=== PATIENT | male | born 1955 | race Caucasian/White ===

== ENCOUNTER → 2024-07-06 | Outpatient (CLI) | payer MEDICARE, MEDICAID, SELFPAY ==
[2024-07-06 16:44] LABS: Glucose Estimated Average 197 mg/dL (80-131); Hemoglobin A1C 8.5 % Hgb (4.8-6.0)
== END | disposition home or self-care (01) ==
PROVIDERS: PCP Family Medicine; Referring Provider Family Medicine; Visit Provider Family Medicine
DX: E11.65 Type 2 diabetes mellitus with hyperglycemia (principal)
CPT/HCPCS: 36415; 83036

== ENCOUNTER → 2024-08-14 | Outpatient (CLI) | payer MEDICARE, MEDICAID, SELFPAY ==
[2024-08-14 10:17] LABS: Basophils # (Auto) 0.1 Thou/mm3 (0.0-0.2); Basophils % (Auto) 1 % (0-2.5); Eosinophils # (Auto) 0.3 Thou/mm3 (0.0-0.5); Eosinophils % (Auto) 3 % (0-10); Hematocrit 44.6 % (41.0-53.0); Hemoglobin 14.7 g/dL (13.5-16.0); Immature Granulocytes % (Auto) 0 % (0-0); Immature Granulocytes Auto 0.03 Thou/mm3 (0.00-0.00); Lymphocytes # (Auto) 2.5 Thou/mm3 (1.0-4.8); Lymphocytes % (Auto) 22 % (10-50); Mean Corpuscular Hemoglobin 30.7 pg (25.0-35.0); Mean Corpuscular Volume 93 fL (80-100); Monocytes # (Auto) 0.8 Thou/mm3 (0.0-0.8); Monocytes % (Auto) 7 % (0-12); Neutrophils # (Auto) 7.4 Thou/mm3 (1.8-7.7); Neutrophils % (Auto) 67 % (37-80); Nucleated Red Blood Cell % 0 /100 WBC (0); Platelet Count 221 Thou/mm3 (140-440); RDW Standard Deviation 44.5 fL (35.1-43.9); Red Blood Count 4.79 Miln/mm3 (4.50-5.90); White Blood Count 11.1 Thou/mm3 (3.8-10.6)
[2024-08-14 10:23] LABS: Glucose Estimated Average 220 mg/dL (80-131); Hemoglobin A1C 9.3 % Hgb (4.8-6.0)
[2024-08-14 10:28] LABS: Alanine Aminotransferase 33 U/L (10-49); Albumin, Serum 4.2 gm/dL (3.4-4.8); Albumin/Globulin Ratio 1.9 (1.2-2.2); Alkaline Phosphatase 148 U/L (46-116); Anion Gap 10 (7-16); Aspartate Amino Transferase 25 U/L (0-34); BUN/Creatinine Ratio 18 Ratio (12-20); Bilirubin,Total 0.8 mg/dL (0.3-1.2); Blood Urea Nitrogen 20 mg/dL (9-23); Calcium 9.2 mg/dL (8.3-10.6); Calcium (Corrected) 9.2 mg/dL (8.5-10.1); Cardiac Risk Estimate 5.1 RATIO (4.0-6.7); Chloride 102 mMol/L (98-107); Cholesterol 174 mg/dL (132-200); Creatinine (Component) 1.1 mg/dL (0.6-1.3); Globulin 2.2 gm/dL (2.3-3.5); Glucose 211 mg/dL (74-106); HDL Cholesterol 34 mg/dL (40-60); LDL Cholesterol,Calculated 104 mg/dL (0-130); Osmolality,Calculated 282 (275-295); Sodium 137 mMol/L (136-145); Total Protein 6.4 gm/dL (5.7-8.2); Triglycerides 180 mg/dL (30-150); eGFR > 60 See Note
== END | disposition home or self-care (01) ==
LOC: COPL 09:04
PROVIDERS: PCP Family Medicine; Referring Provider Family Medicine; Visit Provider Family Medicine
DX: E11.65 Type 2 diabetes mellitus with hyperglycemia (principal)
CPT/HCPCS: 36415; 80053; 80061; 82043; 82570; 83036; 85025

== ENCOUNTER → 2024-08-17 | Outpatient (CLI) | payer MEDICARE, MEDICAID, SELFPAY ==
[2024-08-17 15:29] LABS: Creatinine MALB Rnd Ur 139 mg/dL (30-125)
[2024-08-17 15:37] LABS: Microalbumin Creat Ratio 319 mg/gCrea (<30); Microalbumin, Random Urine 444 mg/L (0-300)
== END | disposition home or self-care (01) ==
PROVIDERS: Referring Provider Family Medicine; Visit Provider Family Medicine
DX: E11.65 Type 2 diabetes mellitus with hyperglycemia (principal)
CPT/HCPCS: 82043; 82570

== ENCOUNTER → 2024-12-09 | Outpatient (CLI) | payer SELFPAY ==
[2024-12-09 13:43] LABS: Glucose Estimated Average 217 mg/dL (80-131); Hemoglobin A1C 9.2 % Hgb (4.8-6.0)
== END | disposition home or self-care (01) ==
LOC: COPL 12:05
PROVIDERS: PCP Family Medicine; Referring Provider Family Medicine; Visit Provider Family Medicine
DX: E11.65 Type 2 diabetes mellitus with hyperglycemia (principal)
CPT/HCPCS: 36415; 83036

== ENCOUNTER → 2025-04-06 | Outpatient (CLI) | payer SELFPAY ==
[2025-04-06 16:05] LABS: Basophils # (Auto) 0.1 Thou/mm3 (0.0-0.2); Basophils % (Auto) 1 % (0-2.5); Eosinophils # (Auto) 0.4 Thou/mm3 (0.0-0.5); Eosinophils % (Auto) 4 % (0-10); Hematocrit 45.1 % (41.0-53.0); Hemoglobin 14.9 g/dL (13.5-16.0); Immature Granulocytes Auto 0.03 Thou/mm3 (0.00-0.00); Lymphocytes # (Auto) 3.3 Thou/mm3 (1.0-4.8); Lymphocytes % (Auto) 32 % (10-50); Mean Corpuscular HGB Conc 33.0 g/dl (31.0-37.0); Mean Corpuscular Hemoglobin 31.5 pg (25.0-35.0); Mean Corpuscular Volume 95 fL (80-100); Monocytes # (Auto) 0.8 Thou/mm3 (0.0-0.8); Monocytes % (Auto) 8 % (0-12); Neutrophils # (Auto) 5.6 Thou/mm3 (1.8-7.7); Neutrophils % (Auto) 55 % (37-80); Nucleated Red Blood Cell # 0.00 Thou/mm3 (0.00-0.00); Nucleated Red Blood Cell % 0 /100 WBC (0); Platelet Count 236 Thou/mm3 (140-440); RDW Standard Deviation 44.8 fL (35.1-43.9); Red Blood Count 4.73 Miln/mm3 (4.50-5.90); White Blood Count 10.1 Thou/mm3 (3.8-10.6)
[2025-04-06 16:13] LABS: Glucose Estimated Average 192 mg/dL (80-131); Hemoglobin A1C 8.3 % Hgb (4.8-6.0)
[2025-04-06 16:15] LABS: Alanine Aminotransferase 24 U/L (10-49); Albumin, Serum 4.1 gm/dL (3.4-4.8); Albumin/Globulin Ratio 1.9 (1.2-2.2); Alkaline Phosphatase 128 U/L (46-116); Anion Gap 10 (7-16); Aspartate Amino Transferase 19 U/L (0-34); BUN/Creatinine Ratio 16 Ratio (12-20); Bilirubin,Total 0.4 mg/dL (0.3-1.2); Blood Urea Nitrogen 22 mg/dL (9-23); Calcium 9.5 mg/dL (8.3-10.6); Calcium (Corrected) 9.5 mg/dL (8.5-10.1); Carbon Dioxide 29.7 mMol/L (20.0-31.0); Cardiac Risk Estimate 4.5 RATIO (4.0-6.7); Chloride 100 mMol/L (98-107); Cholesterol 154 mg/dL (132-200); Creatinine (Component) 1.4 mg/dL (0.6-1.3); Globulin 2.2 gm/dL (2.3-3.5); Glucose 266 mg/dL (74-106); HDL Cholesterol 34 mg/dL (40-60); LDL Cholesterol,Calculated 66 mg/dL (0-130); Osmolality,Calculated 291 (275-295); Potassium 4.3 mMol/L (3.4-5.1); Sodium 140 mMol/L (136-145); Total Protein 6.3 gm/dL (5.7-8.2); Triglycerides 270 mg/dL (30-150); eGFR 54 See Note
[2025-04-06 16:58] LABS: Creatinine MALB Rnd Ur 32 mg/dL (30-125); Microalbumin Creat Ratio 228 mg/gCrea (<30); Microalbumin, Random Urine 73 mg/L (0-300)
== END | disposition home or self-care (01) ==
LOC: COPL 14:31
PROVIDERS: PCP Family Medicine; Referring Provider Student in an Organized Health Care Education/Training Program; Visit Provider Student in an Organized Health Care Education/Training Program
DX: E11.65 Type 2 diabetes mellitus with hyperglycemia (principal); I10 Essential (primary) hypertension; I25.10 Atherosclerotic heart disease of native coronary artery without angina pectoris
CPT/HCPCS: 36415; 80053; 80061; 82043; 82570; 83036; 85025

== ENCOUNTER 2025-05-25 14:57 | Emergency (ER) | payer MEDICARE, SELFPAY ==
--- NOTE | 2025-05-25 15:02 | XR_ITS ---
Examination: CT cervical spine without contrast 2-D sagittal reconstructions 2-D coronal reconstructions 3-D reconstructions. Exam date and time: May 25, 2025, 1626 hours INDICATIONS: Ground-level fall today with injury to the neck, neck pain CTDI:vol (mGy) 20.6 DLP: (mGycm) 480 Technique: Multiple 2 mm axial sections of the cervical spine have been obtained. The coronal and sagittal reconstructions have been obtained. 3-D reconstructions have been obtained. Low dose protocols were performed. One or more of the following dose reduction techniques were used; automated exposure control, adjustment of the mA and/or KV according to patient size, use of iterative reconstruction technique. Findings: Axial sections demonstrate intact base of the skull. C1 exhibit satisfactory relationship to the odontoid. No acute cervical vertebral body fracture seen. Alignment posterior spinous processes satisfactory. Impression: No acute cervical fracture.
--- NOTE | 2025-05-25 15:02 | XR_ITS ---
Examination: CT brain head without contrast. 2-D sagittal coronal reconstructions Date and time of exam: May 25, 2025, 1626 hours INDICATIONS: Ground-level fall today with injury of the head, head pain CTDI: vol (mGy): 67.6 DLP: (mGycm): 1471 Technique: Multiple CT axial sections of the brain have been obtained, 5 mm slice thickness. Contrast has not been administered. 2-D sagittal, coronal reconstructions have been obtained Low dose protocols were performed. One or more of the following dose reduction techniques were used; automated exposure control, adjustment of the mA and/or KV according to patient size, use of iterative reconstruction technique. Findings: Acute subarachnoid hemorrhage in the left frontal parietal sulci, for instance axial image 13 4 mm subarachnoid hemorrhage also right frontal convexity sulcus image 10 Minimal acute subdural hemorrhage, 3 mm thickness anterior cerebral falx image 12 8 mm subarachnoid hemorrhage left frontal sulcus axial image 19 Frontal atrophy Mild to moderate ventricular enlargement No ventricular hemorrhage Cranial vault intact IMPRESSION: Areas of subarachnoid hemorrhage as above without mass effect Minimal subdural hemorrhage anterior cerebral falx Consider close clinical observation and repeat CT brain scan in 12 hours or sooner as clinically warranted
[2025-05-25 15:03] VITALS: PULSE 90; RESP 19; O2SAT 98
--- NOTE | 2025-05-25 15:03 | EDNOTE_ITS ---
<Statement entered by Ivette Aguirre MD - 05/26/25 06:47> As co-signing physician, I was present and available for consult prn. I concur with the plan and care as documented by the midlevel provider. ED General RME/HPI General Chief complaint: Fall Stated complaint: FALL Time Seen by Provider: 05/25/25 15:01 Arrival date/time: 05/25/25 14:57 CC: Headache HPI patient fell backwards while in a wheelchair, EMS reports stable vital signs patient is complaining of pain in the back of his head, denies loss of consciousness or neck pain. Record show the patient is on blood thinners Related Data Home Medications ?Medication ?Instructions ?Recorded ?Confirmed atorvastatin 80 mg tablet (Lipitor) 80 mg PO HS #0 tab s 09/04/16 01/03/20 lisinopril 2.5 mg tablet 2.5 mg PO QDAY #0 tabs 09/0401/03/20 metoprolol tartrate 25 mg tablet 25 mg PO BID #0 tabs 09/04/16 01/03/20 sitagliptin phosphate 100 mg 100 mg PO QDAY #0 tabs 01/03/20 tablet (Januvia) ascorbic acid (vitamin C) 500 mg 500 mg PO QDAY 01/03/20 tablet (Vitamin C) aspirin 325 mg tablet 325 mg PO QDAY 04/15/1912/17 clopidogrel 75 mg tablet 75 mg PO QDAY 04/15/1901/02 cyanocobalamin (vitamin B-12) 1,000 mcg PO QDAY 01/03/20 1,000 mcg tablet (Vitamin B-12) ferrous sulfate 325 mg (65 mg 325 mg PO QDAY 04/15/19 01/03/20 iron) tablet multivitamin 1 tab PO QDAY 04/15/1901/02 gabapentin 100 mg capsule 100 mg PO TID 01/03/2001/02 Allergies Allergy/AdvReac Type Severity Reaction Status Date / Time hydrocodone Allergy Intermediate Vomiting Verified 05/25/25 15:10 metformin Allergy Verified 05/25/25 15:10 Review of Systems Review of Systems Narrative Review of Systems: GEN: No fever, no chills, no weight loss EYES: No discharge, no visual changes, no pain HEENT: No ear pain, no congestion, no sore throat PULM: No shortness of breath, no cough, no congestion CV: No chest pain, no dyspnea on exertion, no palpitations GI: No nausea, no vomiting, no diarrhea, no pain, no constipation : No frequency, no urgency, no dysuria MUSC/SKEL: No joint pain, no back pain SKIN: No rash PSYCH: No hallucinations, no depression HEME/LYMPH: No easy bleeding or bruising tendencies NEURO: No weakness, + headache Past Medical History Past Medical History NEUROLOGIC: Negative Neurological Disorders or Seizures CARDIAC: Positive Cardiac Disorders, Myocardial Infarction (X2), Hypercholesterolemia, Congestive Heart Failure and Hypertension RESPIRATORY: Negative Chronic Obstructive Pulmonary Disease (COPD) GASTROINTESTINAL: Positive Gastrointestinal Disorders, Hemorrhoids (NO SX) and Obesity; Negative Hepatitis GENITOURINARY: Positive Genitourinary Disorders, Renal Disease and Dialysis (2009 X1) MUSCULOSKELETAL: Positive Fractures; Negative Musculoskeletal Disorders ENDOCRINE: Positive Endocrine Disorders and Diabetes Mellitus Type 2; Negative Diabetes Mellitus Type 1 or Hypothyroidism HEMATOLOGIC: Negative Blood Disorders OTHER HISTORY: Positive Hospitalization and Cancer; Negative Autoimmune Disease, MRSA, Chicken Pox, Measles or Mumps Family History FAMILY HISTORY: Positive Family Respiratory Disorders (MOTHER AND BROTHER (ASTHMA)), Family Surgery (BROTHER(BRAIN BLEED)) and Family Anesthesia Reaction (BROTHER(LOW BP)); Negative Family Psychiatric Problems, Family Cardiac Disorders, Family Gastrointestinal Problems or Family Cancer Surgical History SURGICAL: Positive Coronary Artery Bypass Graft (QUADRIPULE) and Joint Replacement Social History SMOKING STATUS: Never smoker SUBSTANCE USE: does not use ED Exam Narrative Physical exam: [General: Morbidly obese not in any acute distress Head normocephalic abrasion to the occiput of the scalp HEENT: Eyes pupils are PERRLA EOMs are intact patient has blade into the sclera of the left eye no lens involvement. Mouth pink dry membranes uvula is midline swallow symmetrical. All other subsystems of HEENT are within acceptable limits Neck is supple nontender Chest equal chest rise nontender to palpation Respiratory: Clear to auscultation no wheezes crackles or rubs CV: Rate rhythm is regular no murmurs rubs or clicks Abdomen is grossly distended secondary to body habitus soft nontender no masses positive bowel sounds all 4 quadrants Back: No CVA tenderness no spinous process tenderness from cervical spine thoracic and lumbar spine Skin: Intact no petechiae rash induration ulceration or crepitus Extremities: Moving all extremity against resistance cap refill less than 2 seconds neurosensory intact. Pitting edema to the lower extremities. Chronic in nature by appearance Neuro: Awake alert oriented x3 Glascow coma 15 no focal deficits] Course Course Course Narrative: Call from Dr Sandoval at 1650, the patient has subarachnoid hemorrhage, transfer nurse notified patient is notified. At 1658, patient has no focal neurodeficits no deterioration in neurologic status. Patient's case and images reviewed by Dr. Mena neurosurgeon at [facility] who is requesting reversal of the Plavix, and then transfer to their ER. Patient's case discussed with the pharmacist who will be mixing the DDAVP for reversal agent. Quality Measures none Orders Category Date Time Status Saline [Insert IV] NOW Care 05/25/25 16:49 Completed Referral - [employer] Stat Cons 05/25/25 16:[address] cervical spine wo con Stat Exams 05/25/25 15:[address] head/brain wo con Stat Exams 05/25/25 15:02 Completed XR chest 1V Stat Exams 05/25/25 16:13 Completed CBC Stat Lab 05/25/25 17:07 Completed CMP [Comprehensive Metabolic Panel] Stat Lab 05/25/25 17:07 Completed PT [Prothrombin Time with INR] Stat Lab 05/25/25 17:07 Completed PTT [Partial Thromboplastin Time] Stat Lab 05/25/25 17:07 Completed Desmopressin Acet Inj [Ddavp Inj] 36 mcg Med 05/25/25 17:45 Discontinued Sodium Chloride 0.9% [Ns] 50 ml IV X1 Vital Signs Vital signs: Vital Signs Temperature 98.1 F 05/25/25 15:11 Pulse Rate 76 05/25/25 15:11 Respiratory Rate 20 05/25/25 15:11 Blood Pressure 186/74 H 05/25/25 15:11 Pulse Oximetry (%) 98 05/25/25 15:11 Discharge Plan Plan Patient Disposition: [facility] Facility Pt Being Transferred to: [facility] Service Needed for Transfer: Neurosurgery Patient condition on transfer: Stable Prescriptions/Referrals Prescriptions/Med Rec: No Action atorvastatin [Lipitor] 80 MG tablet 80 mg PO HS Qty: 0 lisinopril 2.5 MG tablet 2.5 mg PO QDAY Qty: 0 metoprolol tartrate 25 MG tablet 25 mg PO BID Qty: 0 Januvia 100 MG tablet 100 mg PO QDAY Qty: 0 clopidogrel 75 mg Tablet 75 mg PO QDAY multivitamin Tablet 1 tab PO QDAY aspirin 325 mg Tablet 325 mg PO QDAY ascorbic acid (vitamin C) [Vitamin C] 500 mg Tablet 500 mg PO QDAY ferrous sulfate 325 mg (65 mg iron) Tablet 325 mg PO QDAY cyanocobalamin (vitamin B-12) [Vitamin B-12] 1,000 mcg Tablet 1,000 mcg PO QDAY gabapentin 100 mg Capsule 100 mg PO TID Referrals: Osman (PCP),MD Bayron [Primary Care Provider, Family Practice] - In 1 week Problem List Clinical Impression: Subarachnoid hemorrhage, Fall Patient/Caregiver Discharge Instructions Print Language: [place] Stand Alone Forms: Shyla Award Info., Patient Portal Info Letter PA/OFFICE MACHINE TECHNICIAN Supervising Physician PA/OFFICE MACHINE TECHNICIAN Supervising Physician: Marcelino Chen ENP [facility] Clinical Information Provided by: patient and EMS Medical Records reviewed [facility] and EMS Meds/Rx considered, not ordered None Labs/Rad/Tests considered, not ordered None Medication Administration(s) Medication Administration History Discontinued Medications Desmopressin Acetate 36 mcg/ (Sodium Chloride) 59 mls @ 118 mls/hr IV X1 ONE Stop: 05/25/25 18:14 Last Admin: 05/25/25 17:42 Dose: 118 mls/hr Documented By: IRAIDA
[2025-05-25 15:09] VITALS: BMI 39.9
[2025-05-25 15:11] VITALS: BP 186/74; PULSE 76; RESP 20; TEMP 36.7; O2SAT 98
--- NOTE | 2025-05-25 15:15 | PC.NURSE ---
pt brought in by ambulance due to fall from wheelchair while being lifted out of a van today. pt had bump and abrasion to back of head with swelling, redness to inside left eye and swelling, and abrasion to nose area. pt is taking plavix everyday. no loc. pt is A&Ox4. pt also has noted diarrhea which is black in color but he did state that he takes iron everyday. pt c/o a headache but denies dizziness nause or vomiting. pt has hx of dm, and htn. pt placed on monitor/pulse ox.
--- NOTE | 2025-05-25 16:13 | XR_ITS ---
EXAMINATION: AP chest single view TECHNIQUE: AP portable semiupright chest single view Date and time: May 25, 2025, 1634 hours INDICATIONS: Patient fell today with injury to the chest, chest pain FINDINGS: Normal heart size. CABG No pneumothorax or pulmonary contusion No definite acute rib fractures or clavicle fracture IMPRESSION: No pneumothorax pulmonary contusion or hemothorax
--- NOTE | 2025-05-25 17:04 | PC.CM ---
Addendum entered by Siri Myers RN 05/25/25 19:11: [facility] Addendum entered by Siri Myers RN 05/25/25 17:38: Patient has been accepted to [facility] ED with Dr. Mena. Phone # for report [phone]. Patient jayla be getting medication to reverse Plavix so I will set up transport once it is done. [facility] states we can send state by ambulance. Addendum entered by Siri Myers RN 05/25/25 17:09: 1710 I made a CD for packet and started packet. Original Note: 1700 I called [facility] and I initiated a transfer and I faxed over information. 1654 I received a referral to transfer patient for brain bleed.
[2025-05-25 17:24] LABS: Basophils # (Auto) 0.1 Thou/mm3 (0.0-0.2); Basophils % (Auto) 1 % (0-2.5); Eosinophils # (Auto) 0.3 Thou/mm3 (0.0-0.5); Eosinophils % (Auto) 2 % (0-10); Hematocrit 49.1 % (41.0-53.0); Hemoglobin 15.7 g/dL (13.5-16.0); Immature Granulocytes Auto 0.03 Thou/mm3 (0.00-0.00); Lymphocytes # (Auto) 2.2 Thou/mm3 (1.0-4.8); Lymphocytes % (Auto) 18 % (10-50); Mean Corpuscular HGB Conc 32.0 g/dl (31.0-37.0); Mean Corpuscular Hemoglobin 30.6 pg (25.0-35.0); Mean Corpuscular Volume 96 fL (80-100); Monocytes # (Auto) 1.0 Thou/mm3 (0.0-0.8); Monocytes % (Auto) 8 % (0-12); Neutrophils # (Auto) 8.6 Thou/mm3 (1.8-7.7); Neutrophils % (Auto) 71 % (37-80); Nucleated Red Blood Cell # 0.00 Thou/mm3 (0.00-0.00); Nucleated Red Blood Cell % 0 /100 WBC (0); Platelet Count 210 Thou/mm3 (140-440); RDW Standard Deviation 45.5 fL (35.1-43.9); Red Blood Count 5.13 Miln/mm3 (4.50-5.90); White Blood Count 12.1 Thou/mm3 (3.8-10.6)
[2025-05-25 17:38] LABS: Alanine Aminotransferase 31 U/L (10-49); Albumin, Serum 4.3 gm/dL (3.4-4.8); Albumin/Globulin Ratio 1.5 (1.2-2.2); Alkaline Phosphatase 156 U/L (46-116); Anion Gap 8 (7-16); Aspartate Amino Transferase 19 U/L (0-34); BUN/Creatinine Ratio 11 Ratio (12-20); Bilirubin,Total 0.6 mg/dL (0.3-1.2); Blood Urea Nitrogen 15 mg/dL (9-23); Calcium 9.6 mg/dL (8.3-10.6); Calcium (Corrected) 9.6 mg/dL (8.5-10.1); Carbon Dioxide 31.8 mMol/L (20.0-31.0); Chloride 98 mMol/L (98-107); Creatinine (Component) 1.4 mg/dL (0.6-1.3); Estimated Creatinine Clearance 62.6 mL/min (>60); Globulin 2.8 gm/dL (2.3-3.5); Glucose 259 mg/dL (74-106); Osmolality,Calculated 285 (275-295); Potassium 4.8 mMol/L (3.4-5.1); Sodium 138 mMol/L (136-145); Total Protein 7.1 gm/dL (5.7-8.2); eGFR 54 See Note
[2025-05-25 17:46] VITALS: BP 164/74; PULSE 80; RESP 18; TEMP 36.8; O2SAT 96
[2025-05-25 17:46] LABS: INR 1.0 (0.9-1.3); Partial Thromboplastin Time 30.6 Seconds (22.0-36.0); Prothrombin Time 10.5 Seconds (9.0-12.2)
[2025-05-25 18:21] VITALS: BP 133/71
--- NOTE | 2025-05-25 18:31 | PC.NURSE ---
report given to Monae craey at [facility]. pt stable for transport. vss at time of transport. pt will go er-er.
== END 2025-05-25 18:25 | disposition short-term general hospital (02) ==
PROVIDERS: Registered Nurse General Practice; Emergency Provider Emergency Medicine; PCP Family Medicine; Referring Provider Emergency Medicine
DX: S06.6X0A Traumatic subarachnoid hemorrhage without loss of consciousness, initial encounter (principal); S19.9XXA Unspecified injury of neck, initial encounter; S29.9XXA Unspecified injury of thorax, initial encounter; W05.0XXA Fall from non-moving wheelchair, initial encounter; Z75.1 Person awaiting admission to adequate facility elsewhere
CPT/HCPCS: 36415; 70450; 71045; 72125; 80053; 85025; 85610; 85730; 99284; J2597

== ENCOUNTER 2025-05-27 17:39 | Observation (INO) | payer MEDICARE, MEDICAID, SELFPAY ==
--- NOTE | 2025-05-27 17:35 | PD.RESHP ---
Documentation for date of: 05/27/25 HPI History of Present Illness History of present illness: History of Present Illness: 70y/o M with PMH of MIx2, NIDDM, HLD, CHF, HTN, R hip surgery and lymphoma, was transferred from [facility] after evaluation of subdural hematoma. Initially he presented to the ED at [facility] on 05/25/2025, after incident of fall while stepping out of mobility van. Head CT (05/25/2025) showed Acute subarachnoid hemorrhage in the left frontal parietal sulci. Repeat CT head in [facility] showed stable hematoma and received Keppra 1000 mg IV q12hr. Patient was admitted for observation of his subdural hematoma. Patient complains of residual headache and backpain. Denies chest pain, palpation, SOB, abdominal pain, N/V, fevers or chills. ED course: Vitals: Temp 98.1 F, HI 76, RR:20, BP:186/74, O2 sat: 98% RA. Head CT (05/25/2025): Acute subarachnoid hemorrhage in the left frontal parietal sulci.Minimal acute subdural hemorrhage, 3 mm thickness anterior cerebral falx Cervical Spine CT (05/25/2025): No acute cervial fracture CXR (05/25/2025): No pneumothorax pulmonary contusion or hemothorax. [facility] Course: Repeat CT head was stable. Was given Keppra CT brain/head w/o contrast (05/25/2025 22:37:37): Acute subarachnoid hemorrhage within the left frontal lobe. Small amount of acute cerebral hemorrhage layering along the falx cerebri. [id number] focus of acute extra-axial hemorrhage along the left aspect of the anterior falx cerebri. 5x2mm focus of acute extra axial hemorrhage along the mid aspect of the high right frontal lobe. Focal soft tissue swelling and subcutaneous soft tissue stranding/thickening of the high posterior scalp soft tissues the vertex consistent with soft tissue injury. Medical history: As stated above Surgical history: Right Hip surgery. Allergies: Hydrocodone causing vomiting Medications: Pending official med rec Family history: Noncontributory Social history: Denies smoking cigarettes, drinking alcohol or using other illicit drugs Review of Systems Review of Systems Narrative Review of Systems: All 12 systems assessed and the patient denies unless otherwise stated in HPI Exam Narrative Exam General: No acute distress, well nourished, AAO x3 Eye: no scleral icterus, Left eye subconjunctival hemorrage due to fall trauma. HENT: Normocephalic, atraumatic, hearing intact to conversation at normal volume, moist oral mucosa Neck: Supple, non-tender, no JVD, no lymphadenopathy Lungs: Symmetric chest rise, No wheezing, rhonchi, crackles, Coarse breath sounds. Heart: Peripheral pulses intact bilaterally, Regular Rate and Rhythm. Abdomen: Soft, non-tender, non-distended, no palpable masses Musculoskeletal: Normal range of motion and strength, No cyanosis or edema, No visible joint swelling Skin: Skin is warm, dry, Left lower knee unhealing ulcer due to diabetes. Psychiatric: Cooperative, appropriate mood and affect, Awake and alert, not agitated Neuro: Cranial nerves II-XII grossly intact. Strength 5/5 throughout. Sensations intact to light touch. Results: Labs 05/28/25 05:53 05/28/25 05:53 Quality Measures Quality Measures VTE prophylaxis Advance care planning discussed with:: patient Medications Home Medications and Allergies Home Medications ?Medication ?Instructions ?Recorded ?Confirmed ?Type atorvastatin 80 mg tablet (Lipitor) 80 mg PO HS #0 tabs 09/04/16 05/28/25 History lisinopril 2.5 mg tablet 2.5 mg PO QDAY #0 tabs 09/04/16 05/28/25 History metoprolol tartrate 25 mg tablet 25 mg PO BID #0 tabs 09/04/16 05/28/25 History sitagliptin phosphate 100 mg 100 mg PO QDAY #0 tabs 09/04/16 01/03/20 History tablet (Januvia) ascorbic acid (vitamin C) 500 mg 500 mg PO QDAY 04/15/19 01/03/20 History tablet (Vitamin C) aspirin 325 mg tablet 325 mg PO QDAY 04/15/19 01/03/20 History clopidogrel 75 mg tablet 75 mg PO QDAY 04/15/19 01/03/20 History cyanocobalamin (vitamin B-12) 1,000 mcg PO QDAY 04/15/19 01/03/20 History 1,000 mcg tablet (Vitamin B-12) ferrous sulfate 325 mg (65 mg 325 mg PO QDAY 04/15/19 01/03/20 History iron) tablet multivitamin 1 tab PO QDAY 04/15/19 01/03/20 History gabapentin 100 mg capsule 100 mg PO TID 01/03/20 05/28/25 History amlodipine 5 mg tablet 5 mg PO QDAY 05/28/25 05/28/25 History Allergies Allergy/AdvReac Type Severity Reaction Status Date / Time hydrocodone Allergy Intermediate Vomiting Verified 05/25/25 15:10 metformin Allergy Verified 05/25/25 15:10 Assessment & Plan Plan 70y/o M with PMH of MIx2, NIDDM, HLD, CHF, HTN, R hip surgery and lymphoma, was transferred from [facility] after evaluation of subdural hematoma. Patient was admitted for observation of his subdural hematoma. #Subdural hematoma due to fall -Head CT (05/25/2025): Acute subarachnoid hemorrhage in the left frontal parietal sulci.Minimal acute subdural hemorrhage, 3 mm thickness anterior cerebral falx -Cervical Spine CT (05/25/2025): No acute cervial fracture -CXR (05/25/2025): No pneumothorax pulmonary contusion or hemothorax. -Repeat CT head was stable. CT brain/head w/o contrast (05/25/2025 22:37:37): Acute subarachnoid hemorrhage within the left frontal lobe. Small amount of acute cerebral hemorrhage layering along the falx cerebri. [id number] focus of acute extra-axial hemorrhage along the left aspect of the anterior falx cerebri. 5x2mm focus of acute extra axial hemorrhage along the mid aspect of the high right frontal lobe. Focal soft tissue swelling and subcutaneous soft tissue stranding/thickening of the high posterior scalp soft tissues the vertex consistent with soft tissue injury. Plan: -Repeat CT head w/o contrast -Keppra 1000mg IV q12hr -Neurology consulted. Recommendation appreciated. #Diabetes Mellitus -A1c 10.2 -on SSI -on Low carb consistent diet #Non healing ulcer - left lower knee -On Woundcare #HTN -Amlodipine 5mg PO qd -Labetalol 10mg prn Disposition: Med surg Diet: low carb consistent diet GI prophylaxis: Miralax DVT prophylaxis: SCD Code: FULL Assessment and plan discussed with my attending physician Dr. Arellano and Dr. Guzman (PGY-2) Dr. Hahn (PGY-1) - Internal medicine resident Attending Provider Attestation/Addendum I attest that I was physically present for the evaluation, physical examination, lab and imaging review of the patient with the residents. I discussed the case with the residents and agree with the findings and plans of care as documented above. After examination of the patient and review of the clinical data I feel that this patient needs admission to the hospital for further treatment/evaluation. Arnie Arellano MD
[2025-05-27 17:59] VITALS: PULSE 74; RESP 17; TEMP 36.5; O2SAT 133; BMI 92.5
--- NOTE | 2025-05-27 18:27 | PC.NURSE ---
Patient arrived at 17:32
--- NOTE | 2025-05-27 18:28 | XR_ITS ---
Examination: CT brain head without contrast. 2-D sagittal coronal reconstructions Date and time of exam: May 27, 2025, 11:50 p.m. Comparison May 25, 2025 INDICATIONS: Ground-level fall May 25, 2025 with areas of subarachnoid hemorrhage on May 25, 2025 exam CTDI: vol (mGy): 56.5 DLP: (mGycm): 1326 Technique: Multiple CT axial sections of the brain have been obtained, 5 mm slice thickness. Contrast has not been administered. 2-D sagittal, coronal reconstructions have been obtained Low dose protocols were performed. One or more of the following dose reduction techniques were used; automated exposure control, adjustment of the mA and/or KV according to patient size, use of iterative reconstruction technique. Findings: No significant change in small areas of subarachnoid hemorrhage right frontal sulcus and left frontal sulci No definite falx hemorrhage on the current study No new areas of hemorrhage No midline shift Ventricles remain mildly enlarged Cranial vault intact IMPRESSION: No significant change in small areas of subarachnoid hemorrhage right frontal sulcus and left frontal sulci, suggest continued follow-up
[2025-05-27 18:42] LABS: Basophils # (Auto) 0.1 Thou/mm3 (0.0-0.2); Basophils % (Auto) 1 % (0-2.5); Eosinophils # (Auto) 0.5 Thou/mm3 (0.0-0.5); Eosinophils % (Auto) 5 % (0-10); Hematocrit 44.8 % (41.0-53.0); Hemoglobin 14.9 g/dL (13.5-16.0); Immature Granulocytes Auto 0.03 Thou/mm3 (0.00-0.00); Lymphocytes # (Auto) 2.5 Thou/mm3 (1.0-4.8); Lymphocytes % (Auto) 30 % (10-50); Mean Corpuscular HGB Conc 33.3 g/dl (31.0-37.0); Mean Corpuscular Hemoglobin 30.9 pg (25.0-35.0); Mean Corpuscular Volume 93 fL (80-100); Monocytes # (Auto) 0.7 Thou/mm3 (0.0-0.8); Monocytes % (Auto) 9 % (0-12); Neutrophils # (Auto) 4.7 Thou/mm3 (1.8-7.7); Neutrophils % (Auto) 56 % (37-80); Nucleated Red Blood Cell # 0.00 Thou/mm3 (0.00-0.00); Nucleated Red Blood Cell % 0 /100 WBC (0); Platelet Count 173 Thou/mm3 (140-440); RDW Standard Deviation 44.9 fL (35.1-43.9); Red Blood Count 4.82 Miln/mm3 (4.50-5.90); White Blood Count 8.5 Thou/mm3 (3.8-10.6)
--- NOTE | 2025-05-27 18:48 | XR_ITS ---
EXAMINATION: AP chest single view TECHNIQUE: AP portable upright chest single view Date and time: May 27, 2025, 1856 hours, comparison May 25, 2025 INDICATIONS: Lung congestion FINDINGS: Minimal prominence left ventricle CABG Mild vascular congestion. No lobar pneumonia No pulmonary edema IMPRESSION: Mild vascular congestion
[2025-05-27 19:05] LABS: Alanine Aminotransferase 24 U/L (10-49); Albumin, Serum 4.2 gm/dL (3.4-4.8); Albumin/Globulin Ratio 1.6 (1.2-2.2); Alkaline Phosphatase 139 U/L (46-116); Anion Gap 10 (7-16); Aspartate Amino Transferase 15 U/L (0-34); BUN/Creatinine Ratio 11 Ratio (12-20); Bilirubin,Total 0.7 mg/dL (0.3-1.2); Blood Urea Nitrogen 12 mg/dL (9-23); Calcium 9.3 mg/dL (8.3-10.6); Calcium (Corrected) 9.3 mg/dL (8.5-10.1); Carbon Dioxide 31.8 mMol/L (20.0-31.0); Chloride 98 mMol/L (98-107); Creatinine (Component) 1.1 mg/dL (0.6-1.3); Estimated Creatinine Clearance 136.1 mL/min (>60); Globulin 2.6 gm/dL (2.3-3.5); Glucose 148 mg/dL (74-106); Osmolality,Calculated 282 (275-295); Potassium 3.6 mMol/L (3.4-5.1); Sodium 140 mMol/L (136-145); Total Protein 6.8 gm/dL (5.7-8.2); eGFR > 60 See Note
--- NOTE | 2025-05-27 20:09 | ESCONSULT_ITS ---
HPI Data of Consult Requesting Physician: Jorge Garza DO Admitting Provider: Jorge Garza DO Attending Provider: Jorge Garza DO Primary Care Provider: Physician No Primary/Family Consult Narrative Reason for consult: subarachnoid hge History of present illness: Choco Martini is 70 yr male with PMH of MIx2, NIDDM, HLD, CHF, HTN, R hip surgery, lymphoma, and hydrocephalus at 6 months old who was transffered back to [facility] from [facility]. Patient initially had presented to on 05/25 due to a fall. Patient stated that he was backing out on a wheelchair from transport van. The lift was not up yet and fell backwards. He hit his head on the pavement. CT head on 05/25 showed Acute subarachnoid hemorrhage in the left frontal parietal sulci. Transfer to [facility] was initiated at the time. Repeat CT head in [facility] did not show any changes acutely. Patient was given Keppra 1000 mg IV q12hr as seizure prophylaxis. No further intervention was consdiered necessary, therefore was transferred back to [facility] on 05/27 for observation. He denies hx of reccurent falls, no headache, no numbness, or vision changes. AOx3. BP slightly elevated 186/74. No cervical spine fracture. A1c 8.3 from 04/12, glucose 148. Noted that per chart review, patient appears to be on Plavix. cc:: cc: Jorge Garza DO Exam Vital Signs Temp Pulse Resp Pulse Ox O2 Del Method 97.7 F 74 17 133 H Room Air 05/27/25 17:59 05/27/25 17:59 05/27/25 17:59 05/27/25 17:59 05/27/25 17:59 Results Labs 05/29/25 05:00 05/29/25 05:00 Labs: Short CBC 05/27/25 Range/Units 18:33 WBC 8.5 (3.8-10.6) Thou/mm3 Hgb 14.9 (13.5-16.0) g/dL Hct 44.8 (41.0-53.0) % Plt Count 173 D (140-440) Thou/mm3 BMP 05/27/25 18:33 Sodium 140 Potassium 3.6 D Chloride 98 Carbon Dioxide 31.8 H BUN 12 Creatinine 1.1 Glucose 148 H D Calcium 9.3 Liver Function 05/27/25 Range/Units 18:33 Total Bilirubin 0.7 (0.3-1.2) mg/dL AST 15 (0-34) U/L ALT 24 (10-49) U/L Alkaline Phosphatase 139 H (46-116) U/L Albumin 4.2 (3.4-4.8) gm/dL Quality Measures Quality Measures VTE prophylaxis Advance care planning discussed with:: patient Medications Home Medications and Allergies Home Medications ?Medication ?Instructions ?Recorded ?Confirmed ?Type atorvastatin 80 mg tablet (Lipitor) 80 mg PO HS #0 tab s 09/04/16 05/28/25 History lisinopril 2.5 mg tablet 2.5 mg PO QDAY #0 tabs 09/0405/28/25 History metoprolol tartrate 25 mg tablet 25 mg PO BID #0 tabs 09/04/16 05/28/25 History sitagliptin phosphate 100 mg 100 mg PO QDAY #0 tabs 05/29/25 History tablet (Januvia) ascorbic acid (vitamin C) 500 mg 500 mg PO QDAY 05/29/25 History tablet (Vitamin C) cyanocobalamin (vitamin B-12) 1,000 mcg PO QDAY 05/29/25 History 1,000 mcg tablet (Vitamin B-12) ferrous sulfate 325 mg (65 mg 325 mg PO QDAY 04/15/19 05/29/25 History iron) tablet multivitamin 1 tab PO QDAY 04/15/1905/29 History gabapentin 100 mg capsule 100 mg PO TID 01/03/2005/28 History amlodipine 5 mg tablet 5 mg PO QDAY 05/28/25 History Allergies Allergy/AdvReac Type Severity Reaction Status Date / Time hydrocodone Allergy Intermediate Vomiting Verified 05/25/25 15:10 metformin Allergy Verified 05/25/25 15:10 Visit Medications Acetaminophen (Acetaminophen 325 Mg Tablet) 650 mg PO Q6H PRN PRN Reason: PAIN SCALE 1-3 (mild Stop: 06/26/25 17:34 Acetaminophen (Acetaminophen 325 Mg Tablet) 650 mg PO Q6H PRN PRN Reason: Fever >101.5 Stop: 06/26/25 17:34 Al Hydrox/Mg Hydrox/Simethicone (Mg Hyd/Al Hyd/Abelardo (Maalox Reg) Susp 30 Ml Udc) 30 ml PO Q6H PRN PRN Reason: Indigestion Stop: 06/26/25 17:34 Amlodipine Besylate (Amlodipine Besylate 5 Mg Tablet) 5 mg PO QDAY ELISABETH Stop: 06/26/25 17:44 Atorvastatin Calcium (Atorvastatin Calcium 20 Mg Tablet) 80 mg PO HS ELISABETH Stop: 06/26/25 20:59 Bisacodyl (Bisacodyl 5 Mg Tabec) 5 mg PO QDAY PRN; Protocol PRN Reason: CONSTIPATION Stop: 06/26/25 18:03 Dextrose (Dextrose 50%-Water Inj 50 Ml Syringe) 25 ml IV Q15MIN PRN PRN Reason: BG 50-70 responsive npo pt Stop: 06/26/25 18:12 Dextrose (Dextrose 50%-Water Inj 50 Ml Syringe) 50 ml IV Q15MIN PRN PRN Reason: BG <50 OR BG <70 & pt unresponsive Stop: 06/26/25 18:12 Gabapentin (Gabapentin 100 Mg Capsule) 100 mg PO TID ELISABETH Stop: 06/26/25 21:59 Glucagon (Glucagon Inj 1 Mg Vial) 1 mg IM Q15MIN PRN PRN Reason: BG <70, and no IV access Insulin Human Lispro (Insulin Lispro (Admelog) 1 Unit/0.01 Ml Unit) 0 unit SC ACHS [facility]; Protocol Stop: 06/26/25 20:59 Labetalol HCl (Labetalol Inj 5 Mg/Ml Vial 20 Ml) 10 mg IVP Q4HR PRN PRN Reason: Hypertension Stop: 06/26/25 17:44 Levetiracetam (Levetiracetam Inj 100 Mg/Ml Vial 5ml) 1,000 mg IVP Q12HR ELISABETH Stop: 06/26/25 20:59 Ondansetron HCl (Ondansetron Inj 2 Mg/Ml Inj 2 Ml) 4 mg IVP Q6H PRN; Protocol PRN Reason: NAUSEA OR VOMITING Stop: 06/26/25 17:34 Polyethylene Glycol (Polyethylene Glycol 17 Gm Packet) 17 gm PO QDAY ELISABETH Stop: 06/26/25 18:14 Assessment & Plan Plan Choco Martini is 70 yr male with PMH of CAD with previous AR, NIDDM, HLD, CHF, HTN, R hip surgery, lymphoma, on plavix, and hydrocephalus at 6 months old who was transferred back to [facility] from [facility] for subarachnoid hemmoraghe. #Subarachnoid hemorrhage Patient hit head on pavement. CT head on 05/25 showed Acute subarachnoid hemorrhage in the left frontal parietal sulci. Repeat CT head in [facility] did not show any changes acutely. Patient was given Keppra 1000 mg IV q12hr as seizure prophylaxis. No further intervention was consdiered necessary, therefore was transferred back to [facility] on 05/27 for observation. He denies hx of recurrent falls, no headache, no numbness, or vision changes. AOx3. ?Close monitoring of neurologic status for any signs of deterioration ?Repeat CT head ? Avoid blood thinning agents including pharmaceutical DVT prophylaxis what -target BP goal SBP<160 avoiding hypotension #Diabetes Mellitus #Non healing ulcer - left lower knee #HTN #CAD Primary care team to manage above conditions and ongoing care needs. The patient's management plan was discussed with my attending physician Dr. Marina. Mae Hernandez, PGY-2 Attending Provider Attestation/Addendum I have seen and examined the patient at the bedside and I agreed with resident's findings, assessment and plan of care. Patient with hx of recent fall, and sustained subdural and suabarachnoid hge, no focal deficit and no new symptoms. He is stable with repeat CT findings. Will continue to follow, holding antiplatelet and anticoagulant agents.
[2025-05-27 20:20] VITALS: BP 138/84; PULSE 81; RESP 19; TEMP 36.2; O2SAT 99
[2025-05-27 20:23] LABS: Collection Type, Urine Clean Catch
[2025-05-27 20:25] VITALS: BP 138/84; PULSE 81
[2025-05-27] MEDS: POLYETHYLENE GLYCOL 17 GM PACKET PO (20:27)
[2025-05-27] MEDS: ATORVASTATIN CALCIUM 20 MG TABLET 80 MG PO (20:30)
[2025-05-27] MEDS: levETIRAcetam INJ 100 MG/ML VIAL 5ML 1000 MG IVP (20:31)
[2025-05-27] MEDS: INSULIN LISPRO (AdmeLOG) 1 UNIT/0.01 ML UNIT SC (20:31)
[2025-05-27 20:34] LABS: Bacteria,Urine 1+; Bilirubin,Urine Negative (Negative); Blood,Urine Negative (Negative); Clarity,Urine Clear (Clear/Hazy); Color,Urine Lt-Yellow (Lt Yel-Yel); Glucose, Urine Negative (Negative); Ketones,Urine Negative (Negative); Leukocyte Esterase,Urine Negative (Negative); Nitrite,Urine Negative (Negative); PH,Urine 7.0 (5.0-7.0); Protein,Urine Trace (Neg - Trace); RBC,Urine 1 /hpf (0-3); Specific Gravity,Urine 1.010 (1.001-1.035); Squamous Epithelial Cell,Urine < 1 /hpf (0-5); Urobilinogen,Urine Negative mg/dL (0.0-1.0); WBC,Urine 5 /hpf (0-5)
[2025-05-27] MEDS: GABAPENTIN 100 MG CAPSULE PO (22:06)
[2025-05-28] VITALS (9 sets, daily range): BP systolic 124–168; BP diastolic 69–83; PULSE 69–89; RESP 17–20; TEMP 36.1–36.3; O2SAT 93–96
[2025-05-28] MEDS: GABAPENTIN 100 MG CAPSULE PO ×3 (05:44→21:19)
[2025-05-28 06:26] LABS: Basophils # (Auto) 0.0 Thou/mm3 (0.0-0.2); Basophils % (Auto) 0 % (0-2.5); Eosinophils # (Auto) 0.5 Thou/mm3 (0.0-0.5); Eosinophils % (Auto) 5 % (0-10); Hematocrit 43.8 % (41.0-53.0); Hemoglobin 14.5 g/dL (13.5-16.0); Immature Granulocytes Auto 0.03 Thou/mm3 (0.00-0.00); Lymphocytes # (Auto) 2.3 Thou/mm3 (1.0-4.8); Lymphocytes % (Auto) 25 % (10-50); Mean Corpuscular HGB Conc 33.1 g/dl (31.0-37.0); Mean Corpuscular Hemoglobin 30.8 pg (25.0-35.0); Mean Corpuscular Volume 93 fL (80-100); Monocytes # (Auto) 0.9 Thou/mm3 (0.0-0.8); Monocytes % (Auto) 9 % (0-12); Neutrophils # (Auto) 5.5 Thou/mm3 (1.8-7.7); Neutrophils % (Auto) 60 % (37-80); Nucleated Red Blood Cell # 0.00 Thou/mm3 (0.00-0.00); Nucleated Red Blood Cell % 0 /100 WBC (0); Platelet Count 175 Thou/mm3 (140-440); RDW Standard Deviation 44.5 fL (35.1-43.9); Red Blood Count 4.71 Miln/mm3 (4.50-5.90); White Blood Count 9.1 Thou/mm3 (3.8-10.6)
[2025-05-28 06:43] LABS: Alanine Aminotransferase 22 U/L (10-49); Albumin, Serum 4.0 gm/dL (3.4-4.8); Albumin/Globulin Ratio 1.4 (1.2-2.2); Alkaline Phosphatase 125 U/L (46-116); Anion Gap 9 (7-16); Aspartate Amino Transferase 20 U/L (0-34); BUN/Creatinine Ratio 11 Ratio (12-20); Bilirubin,Total 0.7 mg/dL (0.3-1.2); Blood Urea Nitrogen 13 mg/dL (9-23); Calcium 9.4 mg/dL (8.3-10.6); Calcium (Corrected) 9.4 mg/dL (8.5-10.1); Carbon Dioxide 28.4 mMol/L (20.0-31.0); Chloride 100 mMol/L (98-107); Creatinine (Component) 1.2 mg/dL (0.6-1.3); Estimated Creatinine Clearance 124.7 mL/min (>60); Globulin 2.8 gm/dL (2.3-3.5); Glucose 225 mg/dL (74-106); Magnesium 1.9 mg/dL (1.6-2.6); Osmolality,Calculated 280 (275-295); Phosphorous 3.4 mg/dL (2.4-5.1); Potassium 4.1 mMol/L (3.4-5.1); Sodium 137 mMol/L (136-145); Total Protein 6.8 gm/dL (5.7-8.2); eGFR > 60 See Note
[2025-05-28] MEDS: INSULIN LISPRO (AdmeLOG) 1 UNIT/0.01 ML UNIT SC ×4 (07:42→20:09)
--- NOTE | 2025-05-28 08:40 | PC.SS ---
Follow up note: Work with PT. Repeat CT scan.
[2025-05-28] MEDS: METOPROLOL TARTRATE 25 MG TABLET PO ×2 (09:10→20:11)
[2025-05-28] MEDS: levETIRAcetam INJ 100 MG/ML VIAL 5ML 1000 MG IVP ×2 (09:10→21:19)
[2025-05-28] MEDS: POLYETHYLENE GLYCOL 17 GM PACKET PO (09:11)
--- NOTE | 2025-05-28 12:42 | PC.PT ---
PT eval only. Patient is xI with bed mobility and with transfers which is his PLOF/Baseline. Patient is safe to transfer to a bedside commode with 1 staff supervision for safety due to his subdural hematoma. RN made aware.
--- NOTE | 2025-05-28 16:04 | ESPR_ITS ---
<Statement entered by Jerrell Guzman MD - 05/28/25 16:41> Patient seen and assessed in hospital bed denies having any concerning symptoms at this time. Physical therapy recommends home with home health and PT OT outpatient; however, we will reassess with physical therapy as the patient has substantial subarachnoid hemorrhage which is stable on repeat CT but he will benefit greatly from SNF placement. Will continue monitoring and expect discharge in the next 24 hours. I have personally seen and examined the patient. I agree with the resident's assessment and plan as documented below. Jerrell Guzman DO PGY-2 Internal Medicine - GME Documentation for date of: 05/28/25 Subjective Subjective Interval history: No Overnight events. Labs reviewed and patient examined at the bedside. Pending SNF placement. The patient has agreed on SNF discharge. Patient currently stable with no residual headache with generalized minimal abdominal pain. Denies chest pain, palpation, SOB, N/V, fevers or chills. Exam Vital Signs Temp Pulse Resp BP Pulse Ox O2 Del Method 97.3 F 78 18 148/83 H 96 Room Air 05/28/25 12:00 05/28/25 12:00 05/28/25 12:00 05/28/25 12:00 05/28/25 12:00 05/28/25 12:00 Narrative Exam General: No acute distress, well nourished, AAO x3 Eye: no scleral icterus, Left eye subconjunctival hemorrage due to fall trauma. HENT: Normocephalic, atraumatic, hearing intact to conversation at normal volume, moist oral mucosa Neck: Supple, non-tender, no JVD, no lymphadenopathy Lungs: Symmetric chest rise, No wheezing, rhonchi, crackles, Coarse breath sounds. Heart: Peripheral pulses intact bilaterally, Regular Rate and Rhythm. Abdomen: Soft, non-tender, non-distended, no palpable masses Musculoskeletal: Normal range of motion and strength, No cyanosis or edema, No visible joint swelling Skin: Skin is warm, dry, Left lower knee unhealing ulcer due to diabetes. Psychiatric: Cooperative, appropriate mood and affect, Awake and alert, not agitated Neuro: Cranial nerves II-XII grossly intact. Strength 5/5 throughout. Sensations intact to light touch. Objective Labs 06/01/25 04:26 06/01/25 04:26 Labs: Laboratory Results - last 24 hr 05/27/25 05/27/25 05/28/25 18:33 20:13 05:53 WBC 8.5 9.1 RBC 4.82 4.71 Hgb 14.9 14.5 Hct 44.8 43.8 MCV 93 93 MCH 30.9 30.8 MCHC 33.3 33.1 RDW Std Deviation 44.9 H 44.5 H Plt Count 173 D 175 Neut % (Auto) 56 60 Lymph % (Auto) 30 25 [place] % (Auto) 9 9 Eos % (Auto) 5 5 Baso % (Auto) 1 0 Neut # (Auto) 4.7 5.5 Lymph # (Auto) 2.5 2.3 [place] # (Auto) 0.7 0.9 H Eos # (Auto) 0.5 0.5 Baso # (Auto) 0.1 0.0 Immature Gran # (Auto) 0.03 H 0.03 H Absolute Nucleated RBC 0.00 0.00 Immature Gran % 0 0 Nucleated RBC % 0 0 Sodium 140 137 Potassium 3.6 D 4.1 D Chloride 98 100 Carbon Dioxide 31.8 H 28.4 Anion Gap 10 9 BUN 12 13 Creatinine 1.1 1.2 Estim Creat Clear Calc 136.1 124.7 eGFR > 60 > 60 BUN/Creatinine Ratio 11 L 11 L Glucose 148 H D 225 H D Calculated Osmolality 282 280 Calcium 9.3 9.4 Corrected Calcium 9.3 9.4 Phosphorus 3.4 Magnesium 1.9 Total Bilirubin 0.7 0.7 AST 15 20 ALT 24 22 Alkaline Phosphatase 139 H 125 H Total Protein 6.8 6.8 Albumin 4.2 4.0 Globulin 2.6 2.8 Albumin/Globulin Ratio 1.6 1.4 Ur Collection Type Clean Catch Urine Color Lt-Yellow Urine Clarity Clear Urine pH 7.0 Ur Specific [place] 1.010 Urine Protein Trace Urine Glucose (UA) Negative Urine Ketones Negative Urine Blood Negative Urine Nitrite Negative Urine Bilirubin Negative Urine Urobilinogen (Auto) Negative Ur Leukocyte Esterase Negative Urine RBC 1 Urine WBC 5 Ur Squamous Epith Cells < 1 Urine Bacteria 1+ A Quality Measures Quality Measures VTE prophylaxis Advance care planning discussed with:: patient Assessment & Plan Assessment Current Active Medications: Generic Name Dose Route Start Last Admin Trade Name Freq PRN Reason Stop Dose Admin Acetaminophen 650 mg 05/27/25 17:35 Acetaminophen 325 Mg Tablet PO 06/26/25 17:34 Q6H PRN PAIN SCALE 1-3 (mild Acetaminophen 650 mg 05/27/25 17:35 Acetaminophen 325 Mg Tablet PO 06/26/25 17:34 Q6H PRN Fever >101.5 Al Hydrox/Mg Hydrox/Simethicone 30 ml 05/27/25 17:35 Mg Hyd/Al Hyd/Abelardo (Maalox Reg) Susp 30 Ml Udc PO 06/26/25 17:34 Q6H PRN Indigestion Atorvastatin Calcium 80 mg 05/27/25 21:00 05/27/25 20:30 Atorvastatin Calcium 20 Mg Tablet PO 06/26/25 20:59 80 mg HS ELISABETH Administration Bisacodyl 5 mg 05/27/25 18:04 Bisacodyl 5 Mg Tabec PO 06/26/25 18:03 QDAY PRN CONSTIPATION Protocol Dextrose 25 ml 05/27/25 18:13 Dextrose 50%-Water Inj 50 Ml Syringe IV 06/26/25 18:12 Q15MIN PRN BG 50-70 responsive npo pt Dextrose 50 ml 05/27/25 18:13 Dextrose 50%-Water Inj 50 Ml Syringe IV 06/26/25 18:12 Q15MIN PRN BG <50 OR BG <70 & pt unresponsive Gabapentin 100 mg 05/27/25 22:00 05/28/25 13:24 Gabapentin 100 Mg Capsule PO 06/26/25 21:59 100 mg TID ELISABETH Administration Glucagon 1 mg 05/27/25 18:13 Glucagon Inj 1 Mg Vial IM Q15MIN PRN BG <70, and no IV access Insulin Human Lispro 0 unit 05/28/25 08:32 05/28/25 11:41 Insulin Lispro (Admelog) 1 Unit/0.01 Ml Unit SC 06/26/25 20:59 4 unit ACHS ELISABETH Administration Protocol Labetalol HCl 10 mg 05/27/25 17:45 Labetalol Inj 5 Mg/Ml Vial 20 Ml IVP 06/26/25 17:44 Q4HR PRN Hypertension Levetiracetam 1,000 mg 05/27/25 21:00 05/28/25 09:10 Levetiracetam Inj 100 Mg/Ml Vial 5ml IVP 06/26/25 20:59 1,000 mg Q12HR ELISABETH Administration Lisinopril 2.5 mg 05/28/25 09:00 05/28/25 09:11 Lisinopril 2.5 Mg Tablet PO 06/27/25 08:59 2.5 mg QDAY ELISABETH Administration Metoprolol Tartrate 25 mg 05/28/25 09:00 05/28/25 09:10 Metoprolol Tartrate 25 Mg Tablet PO 06/27/25 08:59 25 mg BID ELISABETH Administration Ondansetron HCl 4 mg 05/27/25 17:35 Ondansetron Inj 2 Mg/Ml Inj 2 Ml IVP 06/26/25 17:34 Q6H PRN NAUSEA OR VOMITING Protocol Polyethylene Glycol 17 gm 05/27/25 18:15 05/28/25 09:11 Polyethylene Glycol 17 Gm Packet PO 06/26/25 18:14 17 gm QDAY ELISABETH Administration Plan 70y/o M with PMH of MIx2, NIDDM, HLD, CHF, HTN, R hip surgery and lymphoma, was transferred from [facility] after evaluation of subdural hematoma. Patient was admitted for observation of his subdural hematoma. #Subdural hematoma due to fall -Head CT (05/25/2025): Acute subarachnoid hemorrhage in the left frontal parietal sulci.Minimal acute subdural hemorrhage, 3 mm thickness anterior cerebral falx -Cervical Spine CT (05/25/2025): No acute cervial fracture -CXR (05/25/2025): No pneumothorax pulmonary contusion or hemothorax. -Repeat CT head was stable. CT brain/head w/o contrast (05/25/2025 22:37:37): Acute subarachnoid hemorrhage within the left frontal lobe. Small amount of acute cerebral hemorrhage layering along the falx cerebri. [id number] focus of acute extra-axial hemorrhage along the left aspect of the anterior falx cerebri. 5x2mm focus of acute extra axial hemorrhage along the mid aspect of the high right frontal lobe. Focal soft tissue swelling and subcutaneous soft tissue stranding/thickening of the high posterior scalp soft tissues the vertex consistent with soft tissue injury. -Repeat CT head (05/28/2025): No significant change in small areas of subarachnoid hemorrhage right frontal sulcus and left frontal sulci, suggest continued follow-up Plan: -Repeat CT head w/o contrast -Keppra 1000mg IV q12hr -Neurology consulted. Recommendation appreciated. #Diabetes Mellitus -A1c 10.2 -on SSI -on Low carb consistent diet #Non healing ulcer - left lower knee -On Woundcare #HTN -Amlodipine 5mg PO qd -Labetalol 10mg prn Disposition: Med surg Diet: low carb consistent diet GI prophylaxis: Miralax DVT prophylaxis: SCD Code: FULL Assessment and plan discussed with my attending physician Dr. Napier and Dr. Guzman (PGY-2) Dr. Hahn (PGY-1) - Internal medicine resident Attending Provider Attestation/Addendum I have examined the patient, reviewed labs and imaging findings, discussed the case with the resident(s), and reviewed entered orders. I agree with the plan of care as outlined in this note. Dr. Karthikeyan MD
--- NOTE | 2025-05-28 16:35 | PC.SS ---
SS met with patient regarding his d/c plan. Pt is alert/oriented. Pt was admitted for Subdural Hematoma, S/P Fall. Pt confirmed demographic and contact information is correct on facesheet. Pt resides alone. Pt states he transfers himself into his mobility scooter. Pt has a 2 wheel walker and rollator walker at home. Pt requires assistance with ADLs. Pt states he has [facility] caregiver M-F 3-4 hours. Pt named his sister in law, Clemencia Martini medical decision maker if he is unable. SS provided verbal options for d/c to home or SNF. Pt is agreeable to SNF now and prefers [facility]. PT is recommending Home Health for PT/OT. Pt followed up with PCP April 14, 2025. SS has arranged appointment with PCP, Dr. Snider for Jun 08, 2025 at 3:30pm. Pt will require transportation home. D/C plan: Return home Next of Kin: Clemencia Martini, sister in law, phone# [phone] PCP: Dr. Bartholomew from [facility] next appointment is Jun 08, 2025 at 3:30pm Address: Correct on facesheet
--- NOTE | 2025-05-28 18:14 | PD.VPROG1 ---
Telemedicine visit statement This visit was conducted with the use of phone was obtained on 05/28/25 at 1814. Documentation for date of: 05/28/25 Subjective Subjective Interval history: Patient is in medsurg, no overnight events or issues reported. No c/o headache or dz or weakness or paresthesias. Virtual exam Vital Signs Temp Pulse Resp BP Pulse Ox O2 Del Method 97.3 F 89 20 138/83 H 96 Room Air 05/28/25 16:00 05/28/25 16:00 05/28/25 16:00 05/28/25 16:00 05/28/25 16:00 05/28/25 16:00 Objective Labs 05/29/25 05:00 05/29/25 05:00 Labs: Laboratory Results - last 24 hr 05/27/25 05/27/25 05/28/25 18:33 20:13 05:53 WBC 8.5 9.1 RBC 4.82 4.71 Hgb 14.9 14.5 Hct 44.8 43.8 MCV 93 93 MCH 30.9 30.8 MCHC 33.3 33.1 RDW Std Deviation 44.9 H 44.5 H Plt Count 173 D 175 Neut % (Auto) 56 60 Lymph % (Auto) 30 25 [place] % (Auto) 9 9 Eos % (Auto) 5 5 Baso % (Auto) 1 0 Neut # (Auto) 4.7 5.5 Lymph # (Auto) 2.5 2.3 [place] # (Auto) 0.7 0.9 H Eos # (Auto) 0.5 0.5 Baso # (Auto) 0.1 0.0 Immature Gran # (Auto) 0.03 H 0.03 H Absolute Nucleated RBC 0.00 0.00 Immature Gran % 0 0 Nucleated RBC % 0 0 Sodium 140 137 Potassium 3.6 D 4.1 D Chloride 98 100 Carbon Dioxide 31.8 H 28.4 Anion Gap 10 9 BUN 12 13 Creatinine 1.1 1.2 Estim Creat Clear Calc 136.1 124.7 eGFR > 60 > 60 BUN/Creatinine Ratio 11 L 11 L Glucose 148 H D 225 H D Calculated Osmolality 282 280 Calcium 9.3 9.4 Corrected Calcium 9.3 9.4 Phosphorus 3.4 Magnesium 1.9 Total Bilirubin 0.7 0.7 AST 15 20 ALT 24 22 Alkaline Phosphatase 139 H 125 H Total Protein 6.8 6.8 Albumin 4.2 4.0 Globulin 2.6 2.8 Albumin/Globulin Ratio 1.6 1.4 Ur Collection Type Clean Catch Urine Color Lt-Yellow Urine Clarity Clear Urine pH 7.0 Ur Specific [place] 1.010 Urine Protein Trace Urine Glucose (UA) Negative Urine Ketones Negative Urine Blood Negative Urine Nitrite Negative Urine Bilirubin Negative Urine Urobilinogen (Auto) Negative Ur Leukocyte Esterase Negative Urine RBC 1 Urine WBC 5 Ur Squamous Epith Cells < 1 Urine Bacteria 1+ A Assessment & Plan Problem List (1) Subarachnoid hemorrhage: Status: Acute Assessment and plan: from a recent fall associated with Subdural hematoma as well Resolving (L) Subconjunctival hge is unchanged as well. Contnue to monitor him closely, order repeat CT head for saturday continue to hold antiplatelet agents and anticognulant. continue with Keppra as per NS recs for 1 month. 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
[2025-05-28] MEDS: ATORVASTATIN CALCIUM 20 MG TABLET 80 MG PO (20:12)
[2025-05-29] VITALS (9 sets, daily range): BP systolic 143–165; BP diastolic 77–90; PULSE 64–76; RESP 18–24; TEMP 36.3–37.1; O2SAT 92–96; BMI 42.1
[2025-05-29] MEDS: GABAPENTIN 100 MG CAPSULE PO ×3 (05:48→21:54)
[2025-05-29 06:02] LABS: Basophils # (Auto) 0.0 Thou/mm3 (0.0-0.2); Basophils % (Auto) 0 % (0-2.5); Eosinophils # (Auto) 0.5 Thou/mm3 (0.0-0.5); Eosinophils % (Auto) 6 % (0-10); Hematocrit 42.3 % (41.0-53.0); Hemoglobin 13.9 g/dL (13.5-16.0); Immature Granulocytes Auto 0.03 Thou/mm3 (0.00-0.00); Lymphocytes # (Auto) 2.7 Thou/mm3 (1.0-4.8); Lymphocytes % (Auto) 30 % (10-50); Mean Corpuscular HGB Conc 32.9 g/dl (31.0-37.0); Mean Corpuscular Hemoglobin 30.6 pg (25.0-35.0); Mean Corpuscular Volume 93 fL (80-100); Monocytes # (Auto) 0.9 Thou/mm3 (0.0-0.8); Monocytes % (Auto) 10 % (0-12); Neutrophils # (Auto) 5.0 Thou/mm3 (1.8-7.7); Neutrophils % (Auto) 54 % (37-80); Nucleated Red Blood Cell # 0.00 Thou/mm3 (0.00-0.00); Nucleated Red Blood Cell % 0 /100 WBC (0); Platelet Count 178 Thou/mm3 (140-440); RDW Standard Deviation 44.0 fL (35.1-43.9); Red Blood Count 4.54 Miln/mm3 (4.50-5.90); White Blood Count 9.2 Thou/mm3 (3.8-10.6)
[2025-05-29 06:33] LABS: Alanine Aminotransferase 23 U/L (10-49); Albumin, Serum 3.7 gm/dL (3.4-4.8); Albumin/Globulin Ratio 1.5 (1.2-2.2); Alkaline Phosphatase 119 U/L (46-116); Anion Gap 10 (7-16); Aspartate Amino Transferase 18 U/L (0-34); BUN/Creatinine Ratio 17 Ratio (12-20); Bilirubin,Total 0.6 mg/dL (0.3-1.2); Blood Urea Nitrogen 19 mg/dL (9-23); Calcium 9.0 mg/dL (8.3-10.6); Calcium (Corrected) 9.2 mg/dL (8.5-10.1); Carbon Dioxide 27.9 mMol/L (20.0-31.0); Chloride 100 mMol/L (98-107); Creatinine (Component) 1.1 mg/dL (0.6-1.3); Estimated Creatinine Clearance 136.1 mL/min (>60); Globulin 2.4 gm/dL (2.3-3.5); Glucose 248 mg/dL (74-106); Magnesium 2.1 mg/dL (1.6-2.6); Osmolality,Calculated 285 (275-295); Phosphorous 3.0 mg/dL (2.4-5.1); Potassium 4.4 mMol/L (3.4-5.1); Sodium 138 mMol/L (136-145); Total Protein 6.1 gm/dL (5.7-8.2); eGFR > 60 See Note
[2025-05-29] MEDS: INSULIN LISPRO (AdmeLOG) 1 UNIT/0.01 ML UNIT SC ×4 (07:39→20:34)
[2025-05-29] MEDS: METOPROLOL TARTRATE 25 MG TABLET PO ×2 (09:53→20:38)
[2025-05-29] MEDS: levETIRAcetam INJ 100 MG/ML VIAL 5ML 1000 MG IVP ×2 (09:54→20:37)
[2025-05-29] MEDS: POLYETHYLENE GLYCOL 17 GM PACKET PO (09:54)
--- NOTE | 2025-05-29 10:27 | PC.SS ---
Addendum entered by HILARIO Harden 05/30/25 15:05: [employer] attempted to meet with patient to ask PASRR questions, patient was not alert, SS will follow up once patient is alert and oriented. Addendum entered by HILARIO Harden 05/29/25 16:01: rounding note: pending SNF placement. [employer] confirmed with Terri from [facility] that they can accept patient but will need authorization, they can accept him only on an observation stay. Original Note: [employer] submitted SNF referral, PASSR pending once patient is alert to answer questions.
--- NOTE | 2025-05-29 14:40 | ESPR_ITS ---
<Statement entered by Chris Wells MD - 05/30/25 12:43> I have discussed and was present for the essential components of the history, physical examination, diagnosis, and treatment plan with the resident. I agree with the patient's care as documented by the resident and amended herein by me. Chris Wells MD FACP. Documentation for date of: 05/29/25 Subjective Subjective Interval history: Patient was seen and examined at bedside. No acute overnight events. Labs and vitals were stable. Patient had 1 bowel movement, urine output this adequate. Patient will benefit from SNF placement. Pending authorization which most likely will happen on Saturday. Exam Vital Signs Temp Pulse Resp BP Pulse Ox O2 Del Method 97.4 F 73 18 156/87 H 95 Room Air 05/29/25 12:00 05/29/25 12:00 05/29/25 12:00 05/29/25 12:00 05/29/25 12:00 05/29/25 12:00 Narrative Exam General: No acute distress, well nourished, AAO x3 Eye: no scleral icterus, Left eye subconjunctival hemorrage due to fall trauma. HENT: Normocephalic, atraumatic, hearing intact to conversation at normal volume, moist oral mucosa Neck: Supple, non-tender, no JVD, no lymphadenopathy Lungs: Symmetric chest rise, No wheezing, rhonchi, crackles, Coarse breath sounds. Heart: Peripheral pulses intact bilaterally, Regular Rate and Rhythm. Abdomen: Soft, non-tender, non-distended, no palpable masses Musculoskeletal: Normal range of motion and strength, No cyanosis or edema, No visible joint swelling Skin: Skin is warm, dry, Left lower knee unhealing ulcer due to diabetes. Psychiatric: Cooperative, appropriate mood and affect, Awake and alert, not agitated Neuro: Cranial nerves II-XII grossly intact. Strength 5/5 throughout. Sensations intact to light touch. Objective Labs 05/29/25 05:00 05/29/25 05:00 Labs: Laboratory Results - last 24 hr 05/29/25 05:00 WBC 9.2 RBC 4.54 Hgb 13.9 Hct 42.3 MCV 93 MCH 30.6 MCHC 32.9 RDW Std Deviation 44.0 H Plt Count 178 Neut % (Auto) 54 Lymph % (Auto) 30 [place] % (Auto) 10 Eos % (Auto) 6 Baso % (Auto) 0 Neut # (Auto) 5.0 Lymph # (Auto) 2.7 [place] # (Auto) 0.9 H Eos # (Auto) 0.5 Baso # (Auto) 0.0 Immature Gran # (Auto) 0.03 H Absolute Nucleated RBC 0.00 Immature Gran % 0 Nucleated RBC % 0 Sodium 138 Potassium 4.4 Chloride 100 Carbon Dioxide 27.9 Anion Gap 10 BUN 19 Creatinine 1.1 Estim Creat Clear Calc 136.1 eGFR > 60 BUN/Creatinine Ratio 17 Glucose 248 H Calculated Osmolality 285 Calcium 9.0 Corrected Calcium 9.2 Phosphorus 3.0 Magnesium 2.1 Total Bilirubin 0.6 AST 18 ALT 23 Alkaline Phosphatase 119 H Total Protein 6.1 Albumin 3.7 Globulin 2.4 Albumin/Globulin Ratio 1.5 Quality Measures Quality Measures VTE prophylaxis Advance care planning discussed with:: patient Assessment & Plan Assessment Current Active Medications: Generic Name Dose Route Start Last Admin Trade Name Freq PRN Reason Stop Dose Admin Acetaminophen 650 mg 05/27/25 17:35 Acetaminophen 325 Mg Tablet PO 06/26/25 17:34 Q6H PRN PAIN SCALE 1-3 (mild Acetaminophen 650 mg 05/27/25 17:35 Acetaminophen 325 Mg Tablet PO 06/26/25 17:34 Q6H PRN Fever >101.5 Al Hydrox/Mg Hydrox/Simethicone 30 ml 05/27/25 17:35 Mg Hyd/Al Hyd/Abelardo (Maalox Reg) Susp 30 Ml Udc PO 06/26/25 17:34 Q6H PRN Indigestion Amlodipine Besylate 5 mg 05/29/25 09:00 05/29/25 09:54 Amlodipine Besylate 5 Mg Tablet PO 06/28/25 08:59 5 mg QDAY ELISABETH Administration Atorvastatin Calcium 80 mg 05/27/25 21:00 05/28/25 20:12 Atorvastatin Calcium 20 Mg Tablet PO 06/26/25 20:59 80 mg HS ELISABETH Administration Bisacodyl 5 mg 05/27/25 18:04 Bisacodyl 5 Mg Tabec PO 06/26/25 18:03 QDAY PRN CONSTIPATION Protocol Dextrose 25 ml 05/27/25 18:13 Dextrose 50%-Water Inj 50 Ml Syringe IV 06/26/25 18:12 Q15MIN PRN BG 50-70 responsive npo pt Dextrose 50 ml 05/27/25 18:13 Dextrose 50%-Water Inj 50 Ml Syringe IV 06/26/25 18:12 Q15MIN PRN BG <50 OR BG <70 & pt unresponsive Gabapentin 100 mg 05/27/25 22:00 05/29/25 13:59 Gabapentin 100 Mg Capsule PO 06/26/25 21:59 100 mg TID ELISABETH Administration Glucagon 1 mg 05/27/25 18:13 Glucagon Inj 1 Mg Vial IM Q15MIN PRN BG <70, and no IV access Insulin Human Lispro 0 unit 05/28/25 08:32 05/29/25 11:51 Insulin Lispro (Admelog) 1 Unit/0.01 Ml Unit SC 06/26/25 20:59 5 unit ACHS ELISABETH Administration Protocol Labetalol HCl 10 mg 05/27/25 17:45 Labetalol Inj 5 Mg/Ml Vial 20 Ml IVP 06/26/25 17:44 Q4HR PRN Hypertension Levetiracetam 1,000 mg 05/27/25 21:00 05/29/25 09:54 Levetiracetam Inj 100 Mg/Ml Vial 5ml IVP 06/26/25 20:59 1,000 mg Q12HR ELISABETH Administration Lisinopril 2.5 mg 05/28/25 09:00 05/29/25 09:53 Lisinopril 2.5 Mg Tablet PO 06/27/25 08:59 2.5 mg QDAY ELISABETH Administration Metoprolol Tartrate 25 mg 05/28/25 09:00 05/29/25 09:53 Metoprolol Tartrate 25 Mg Tablet PO 06/27/25 08:59 25 mg BID ELISABETH Administration Ondansetron HCl 4 mg 05/27/25 17:35 Ondansetron Inj 2 Mg/Ml Inj 2 Ml IVP 06/26/25 17:34 Q6H PRN NAUSEA OR VOMITING Protocol Polyethylene Glycol 17 gm 05/27/25 18:15 05/29/25 09:54 Polyethylene Glycol 17 Gm Packet PO 06/26/25 18:14 17 gm QDAY ELISABETH Administration Plan 70y/o M with PMH of MIx2, NIDDM, HLD, CHF, HTN, R hip surgery and lymphoma, was transferred from [facility] after evaluation of subdural hematoma. Patient was admitted for observation of his subdural hematoma. #Subdural hematoma due to fall-stable -Head CT (05/25/2025): Acute subarachnoid hemorrhage in the left frontal parietal sulci.Minimal acute subdural hemorrhage, 3 mm thickness anterior cerebral falx -Cervical Spine CT (05/25/2025): No acute cervial fracture -CXR (05/25/2025): No pneumothorax pulmonary contusion or hemothorax. -Repeat CT head was stable. CT brain/head w/o contrast (05/25/2025 22:37:37): Acute subarachnoid hemorrhage within the left frontal lobe. Small amount of acute cerebral hemorrhage layering along the falx cerebri. [id number] focus of acute extra-axial hemorrhage along the left aspect of the anterior falx cerebri. 5x2mm focus of acute extra axial hemorrhage along the mid aspect of the high right frontal lobe. Focal soft tissue swelling and subcutaneous soft tissue stranding/thickening of the high posterior scalp soft tissues the vertex consistent with soft tissue injury. -Repeat CT head (05/28/2025): No significant change in small areas of subarachnoid hemorrhage right frontal sulcus and left frontal sulci, suggest continued follow-up Plan: -Keppra 1000mg IV q12hr -Neurology consulted. Recommendation appreciated. -repeat CT if any changes in neuro status, follow up outpatient with neuro -patient will benefir from SNF placement for PT/OT , pending insurance auth #Diabetes Mellitus -A1c 10.2 -on SSI -on Low carb consistent diet #Non healing ulcer - left lower knee -On Woundcare #HTN -Amlodipine 5mg PO qd -Labetalol 10mg prn Disposition: Med surg Diet: low carb consistent diet GI prophylaxis: Miralax DVT prophylaxis: SCD Code: FULL Patient care was discussed with attending physician Dr.Mullin Sonja Palencia MD PGY-3 I have carefully reviewed this document. Due to imperfections in the voice software, there could be grammatical errors including phonetic/typographic errors. This in no way compromises the medical care the patient is receiving
[2025-05-29] MEDS: ATORVASTATIN CALCIUM 20 MG TABLET 80 MG PO (20:38)
--- NOTE | 2025-05-29 22:32 | PD.VPROG1 ---
Telemedicine visit statement This visit was conducted with the use of phone was obtained on 05/29/25 at 1814. Documentation for date of: 05/29/25 Subjective Subjective Interval history: Patient is in medsurg, no overnight events or issues reported. No c/o headache or dz or weakness or paresthesias. Virtual exam Vital Signs Temp Pulse Resp BP Pulse Ox O2 Del Method 98.7 F 76 20 143/90 H 92 L Room Air 05/29/25 20:00 05/29/25 20:38 05/29/25 20:00 05/29/25 20:38 05/29/25 20:00 05/29/25 20:00 Objective Labs 05/29/25 05:00 05/29/25 05:00 Labs: Laboratory Results - last 24 hr 05/29/25 05:00 WBC 9.2 RBC 4.54 Hgb 13.9 Hct 42.3 MCV 93 MCH 30.6 MCHC 32.9 RDW Std Deviation 44.0 H Plt Count 178 Neut % (Auto) 54 Lymph % (Auto) 30 [place] % (Auto) 10 Eos % (Auto) 6 Baso % (Auto) 0 Neut # (Auto) 5.0 Lymph # (Auto) 2.7 [place] # (Auto) 0.9 H Eos # (Auto) 0.5 Baso # (Auto) 0.0 Immature Gran # (Auto) 0.03 H Absolute Nucleated RBC 0.00 Immature Gran % 0 Nucleated RBC % 0 Sodium 138 Potassium 4.4 Chloride 100 Carbon Dioxide 27.9 Anion Gap 10 BUN 19 Creatinine 1.1 Estim Creat Clear Calc 136.1 eGFR > 60 BUN/Creatinine Ratio 17 Glucose 248 H Calculated Osmolality 285 Calcium 9.0 Corrected Calcium 9.2 Phosphorus 3.0 Magnesium 2.1 Total Bilirubin 0.6 AST 18 ALT 23 Alkaline Phosphatase 119 H Total Protein 6.1 Albumin 3.7 Globulin 2.4 Albumin/Globulin Ratio 1.5 Assessment & Plan Problem List (1) Subarachnoid hemorrhage: Status: Acute Assessment and plan: from a recent fall associated with Subdural hematoma as well Resolving (L) Subconjunctival hge is unchanged as well. Contnue to monitor him closely, order repeat CT head for saturday continue to hold antiplatelet agents and anticognulant. continue with Keppra as per NSG recs for 1 month. 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
[2025-05-30] VITALS (10 sets, daily range): BP systolic 129–186; BP diastolic 69–92; PULSE 64–88; RESP 16–22; TEMP 36.3–36.7; O2SAT 92–97
[2025-05-30 05:48] LABS: Basophils # (Auto) 0.0 Thou/mm3 (0.0-0.2); Basophils % (Auto) 0 % (0-2.5); Eosinophils # (Auto) 0.6 Thou/mm3 (0.0-0.5); Eosinophils % (Auto) 6 % (0-10); Hematocrit 43.1 % (41.0-53.0); Hemoglobin 14.2 g/dL (13.5-16.0); Immature Granulocytes Auto 0.03 Thou/mm3 (0.00-0.00); Lymphocytes # (Auto) 2.5 Thou/mm3 (1.0-4.8); Lymphocytes % (Auto) 25 % (10-50); Mean Corpuscular HGB Conc 32.9 g/dl (31.0-37.0); Mean Corpuscular Hemoglobin 30.6 pg (25.0-35.0); Mean Corpuscular Volume 93 fL (80-100); Monocytes # (Auto) 1.0 Thou/mm3 (0.0-0.8); Monocytes % (Auto) 10 % (0-12); Neutrophils # (Auto) 5.8 Thou/mm3 (1.8-7.7); Neutrophils % (Auto) 59 % (37-80); Nucleated Red Blood Cell # 0.00 Thou/mm3 (0.00-0.00); Nucleated Red Blood Cell % 0 /100 WBC (0); Platelet Count 173 Thou/mm3 (140-440); RDW Standard Deviation 44.4 fL (35.1-43.9); Red Blood Count 4.64 Miln/mm3 (4.50-5.90); White Blood Count 9.9 Thou/mm3 (3.8-10.6)
[2025-05-30] MEDS: GABAPENTIN 100 MG CAPSULE PO ×3 (05:52→21:35)
[2025-05-30 06:14] LABS: Alanine Aminotransferase 23 U/L (10-49); Albumin, Serum 3.8 gm/dL (3.4-4.8); Albumin/Globulin Ratio 1.5 (1.2-2.2); Alkaline Phosphatase 122 U/L (46-116); Anion Gap 9 (7-16); Aspartate Amino Transferase 16 U/L (0-34); BUN/Creatinine Ratio 21 Ratio (12-20); Bilirubin,Total 0.6 mg/dL (0.3-1.2); Blood Urea Nitrogen 25 mg/dL (9-23); Calcium 9.3 mg/dL (8.3-10.6); Calcium (Corrected) 9.5 mg/dL (8.5-10.1); Carbon Dioxide 26.6 mMol/L (20.0-31.0); Chloride 102 mMol/L (98-107); Creatinine (Component) 1.2 mg/dL (0.6-1.3); Estimated Creatinine Clearance 74.0 mL/min (>60); Globulin 2.5 gm/dL (2.3-3.5); Glucose 281 mg/dL (74-106); Magnesium 2.1 mg/dL (1.6-2.6); Osmolality,Calculated 290 (275-295); Phosphorous 3.7 mg/dL (2.4-5.1); Potassium 4.6 mMol/L (3.4-5.1); Sodium 138 mMol/L (136-145); Total Protein 6.3 gm/dL (5.7-8.2); eGFR > 60 See Note
[2025-05-30] MEDS: INSULIN LISPRO (AdmeLOG) 1 UNIT/0.01 ML UNIT SC ×4 (07:29→21:34)
[2025-05-30] MEDS: METOPROLOL TARTRATE 25 MG TABLET PO ×2 (08:10→21:35)
[2025-05-30] MEDS: levETIRAcetam INJ 100 MG/ML VIAL 5ML 1000 MG IVP ×2 (08:11→21:34)
--- NOTE | 2025-05-30 08:21 | PC.SS ---
SS received call from [facility] who stated they can accept SNF referral for patient. [facility] stated patient will need insurance authorization and can be initiated next business day 05/31/25. HILARIO Lyons informed.
--- NOTE | 2025-05-30 08:26 | XR_ITS ---
EXAMINATION: AP chest single view TECHNIQUE: AP portable upright chest single view Date and time: May 30, 2025, 0932 hours, comparison May 27, 2025 INDICATIONS: Shortness of breath today. FINDINGS: Minor prominence left ventricle. Median sternotomy wires. No pneumonia or pulmonary edema. Moderate osteopenia. IMPRESSION: No pneumonia or pulmonary edema.
--- NOTE | 2025-05-30 11:34 | PC.NURSE ---
RT made aware of PRN breathing treatment, RN requested treatment for patient. RT will provided treatment to patient at next available time.
--- NOTE | 2025-05-30 12:11 | ESPR_ITS ---
<Statement entered by Chris Wells MD - 05/30/25 13:14> I have discussed and was present for the essential components of the history, physical examination, diagnosis, and treatment plan with the resident. I agree with the patient's care as documented by the resident and amended herein by me. Chris Wells MD FACP. Documentation for date of: 05/30/25 Subjective Subjective Interval history: Seen bedside. No acute overnight events. Today upon my evaluation patient was complaining of mild chest congestion, physical exam was positive for mild wheezing, chest x-ray was unremarkable. Patient will be given DuoNebs treatment for symptomatic relief, pending insurance authorization for SNF placement. Anticipate discharge tomorrow Exam Vital Signs Temp Pulse Resp BP Pulse Ox O2 Del Method 97.5 F 75 16 186/85 H 92 L Room Air 05/30/25 08:00 05/30/25 08:10 05/30/25 08:00 05/30/25 08:10 05/30/25 08:00 05/30/25 08:00 Narrative Exam General: No acute distress, well nourished, AAO x3 Eye: no scleral icterus, Left eye subconjunctival hemorrage due to fall trauma. HENT: Normocephalic, atraumatic, hearing intact to conversation at normal volume, moist oral mucosa Neck: Supple, non-tender, no JVD, no lymphadenopathy Lungs: Symmetric chest rise, No wheezing, rhonchi, crackles, Coarse breath sounds. Heart: Peripheral pulses intact bilaterally, Regular Rate and Rhythm. Abdomen: Soft, non-tender, non-distended, no palpable masses Musculoskeletal: Normal range of motion and strength, No cyanosis or edema, No visible joint swelling Skin: Skin is warm, dry, Left lower knee unhealing ulcer due to diabetes. Psychiatric: Cooperative, appropriate mood and affect, Awake and alert, not agitated Neuro: Cranial nerves II-XII grossly intact. Strength 5/5 throughout. Sensations intact to light touch. Objective Labs 05/30/25 05:19 05/30/25 05:19 Labs: Laboratory Results - last 24 hr 05/30/25 05:19 WBC 9.9 RBC 4.64 Hgb 14.2 Hct 43.1 MCV 93 MCH 30.6 MCHC 32.9 RDW Std Deviation 44.4 H Plt Count 173 Neut % (Auto) 59 Lymph % (Auto) 25 [place] % (Auto) 10 Eos % (Auto) 6 Baso % (Auto) 0 Neut # (Auto) 5.8 Lymph # (Auto) 2.5 [place] # (Auto) 1.0 H Eos # (Auto) 0.6 H Baso # (Auto) 0.0 Immature Gran # (Auto) 0.03 H Absolute Nucleated RBC 0.00 Immature Gran % 0 Nucleated RBC % 0 Sodium 138 Potassium 4.6 Chloride 102 Carbon Dioxide 26.6 Anion Gap 9 BUN 25 H Creatinine 1.2 Estim Creat Clear Calc 74.0 eGFR > 60 BUN/Creatinine Ratio 21 H Glucose 281 H Calculated Osmolality 290 Calcium 9.3 Corrected Calcium 9.5 Phosphorus 3.7 Magnesium 2.1 Total Bilirubin 0.6 AST 16 ALT 23 Alkaline Phosphatase 122 H Total Protein 6.3 Albumin 3.8 Globulin 2.5 Albumin/Globulin Ratio 1.5 Quality Measures Quality Measures VTE prophylaxis Advance care planning discussed with:: patient Assessment & Plan Assessment Current Active Medications: Generic Name Dose Route Start Last Admin Trade Name Freq PRN Reason Stop Dose Admin Acetaminophen 650 mg 05/27/25 17:35 Acetaminophen 325 Mg Tablet PO 06/26/25 17:34 Q6H PRN PAIN SCALE 1-3 (mild Acetaminophen 650 mg 05/27/25 17:35 Acetaminophen 325 Mg Tablet PO 06/26/25 17:34 Q6H PRN Fever >101.5 Al Hydrox/Mg Hydrox/Simethicone 30 ml 05/27/25 17:35 Mg Hyd/Al Hyd/Abelardo (Maalox Reg) Susp 30 Ml Udc PO 06/26/25 17:34 Q6H PRN Indigestion Albuterol/Ipratropium 3 ml 05/30/25 09:51 Albuterol/Ipratropium (Duoneb) Rt Merlene 3 Ml Nebu INH 06/29/25 12:59 Q6HRRT PRN wheezing Amlodipine Besylate 5 mg 05/29/25 09:00 05/30/25 08:10 Amlodipine Besylate 5 Mg Tablet PO 06/28/25 08:59 5 mg QDAY ELISABETH Administration Atorvastatin Calcium 80 mg 05/27/25 21:00 05/29/25 20:38 Atorvastatin Calcium 20 Mg Tablet PO 06/26/25 20:59 80 mg HS ELISABETH Administration Bisacodyl 5 mg 05/27/25 18:04 Bisacodyl 5 Mg Tabec PO 06/26/25 18:03 QDAY PRN CONSTIPATION Protocol Dextrose 25 ml 05/27/25 18:13 Dextrose 50%-Water Inj 50 Ml Syringe IV 06/26/25 18:12 Q15MIN PRN BG 50-70 responsive npo pt Dextrose 50 ml 05/27/25 18:13 Dextrose 50%-Water Inj 50 Ml Syringe IV 06/26/25 18:12 Q15MIN PRN BG <50 OR BG <70 & pt unresponsive Gabapentin 100 mg 05/27/25 22:00 05/30/25 05:52 Gabapentin 100 Mg Capsule PO 06/26/25 21:59 100 mg TID ELISABETH Administration Glucagon 1 mg 05/27/25 18:13 Glucagon Inj 1 Mg Vial IM Q15MIN PRN BG <70, and no IV access Insulin Human Lispro 0 unit 05/28/25 08:32 05/30/25 11:23 Insulin Lispro (Admelog) 1 Unit/0.01 Ml Unit SC 06/26/25 20:59 5 unit ACHS ELISABETH Administration Protocol Labetalol HCl 10 mg 05/27/25 17:45 Labetalol Inj 5 Mg/Ml Vial 20 Ml IVP 06/26/25 17:44 Q4HR PRN Hypertension Levetiracetam 1,000 mg 05/27/25 21:00 05/30/25 08:11 Levetiracetam Inj 100 Mg/Ml Vial 5ml IVP 06/26/25 20:59 1,000 mg Q12HR ELISABETH Administration Lisinopril 5 mg 05/30/25 09:00 05/30/25 08:10 Lisinopril 2.5 Mg Tablet PO 06/29/25 08:59 5 mg QDAY ELISABETH Administration Metoprolol Tartrate 25 mg 05/28/25 09:00 05/30/25 08:10 Metoprolol Tartrate 25 Mg Tablet PO 06/27/25 08:59 25 mg BID ELISABETH Administration Ondansetron HCl 4 mg 05/27/25 17:35 Ondansetron Inj 2 Mg/Ml Inj 2 Ml IVP 06/26/25 17:34 Q6H PRN NAUSEA OR VOMITING Protocol Polyethylene Glycol 17 gm 05/27/25 18:15 05/30/25 08:11 Polyethylene Glycol 17 Gm Packet PO 06/26/25 18:14 Not Given QDAY ELISABETH Plan 70y/o M with PMH of MIx2, NIDDM, HLD, CHF, HTN, R hip surgery and lymphoma, was transferred from [facility] after evaluation of subdural hematoma. Patient was admitted for observation of his subdural hematoma. #Subdural hematoma due to fall-stable -Head CT (05/25/2025): Acute subarachnoid hemorrhage in the left frontal parietal sulci.Minimal acute subdural hemorrhage, 3 mm thickness anterior cerebral falx -Cervical Spine CT (05/25/2025): No acute cervial fracture -CXR (05/25/2025): No pneumothorax pulmonary contusion or hemothorax. -Repeat CT head was stable. CT brain/head w/o contrast (05/25/2025 22:37:37): Acute subarachnoid hemorrhage within the left frontal lobe. Small amount of acute cerebral hemorrhage layering along the falx cerebri. [id number] focus of acute extra-axial hemorrhage along the left aspect of the anterior falx cerebri. 5x2mm focus of acute extra axial hemorrhage along the mid aspect of the high right frontal lobe. Focal soft tissue swelling and subcutaneous soft tissue stranding/thickening of the high posterior scalp soft tissues the vertex consistent with soft tissue injury. -Repeat CT head (05/28/2025): No significant change in small areas of subarachnoid hemorrhage right frontal sulcus and left frontal sulci, suggest continued follow-up Plan: -Keppra 1000mg IV q12hr -Neurology consulted. Recommendation appreciated. -repeat CT if any changes in neuro status, follow up outpatient with neuro -patient will benefir from SNF placement for PT/OT , pending insurance auth, most likely on saturday #Diabetes Mellitus -A1c 10.2 -on SSI -on Low carb consistent diet #Non healing ulcer - left lower knee -On Woundcare #HTN -Amlodipine 5mg PO qd -added lisinopril -Labetalol 10mg prn Disposition: Med surg Diet: low carb consistent diet GI prophylaxis: Miralax DVT prophylaxis: SCD Code: FULL Patient care was discussed with attending physician Dr.Mullin Sonja Palencia MD PGY-3 I have carefully reviewed this document. Due to imperfections in the voice software, there could be grammatical errors including phonetic/typographic errors. This in no way compromises the medical care the patient is receiving
[2025-05-30] MEDS: ALBUTEROL/IPRATROPIUM (Duoneb) RT SOL 3 ML NEBU INH ×2 (12:13→22:00)
[2025-05-30] MEDS: ATORVASTATIN CALCIUM 20 MG TABLET 80 MG PO (21:35)
[2025-05-31] VITALS (14 sets, daily range): BP systolic 102–165; BP diastolic 63–75; PULSE 62–97; RESP 17–20; TEMP 36.3–36.9; O2SAT 91–97
--- NOTE | 2025-05-31 00:50 | PC.NURSE ---
called Dr. Posey regarding patient c/o chest tightness and pain whenever he coughs. Patient's vitals are stable, CXR was done yesterday but was unremarkable. Per doctor to continue to monitor patient and to notify him if patient develop new symptoms. Per doctor will see patient at bedside.
[2025-05-31] MEDS: ALBUTEROL/IPRATROPIUM (Duoneb) RT SOL 3 ML NEBU INH ×2 (01:04→20:47)
--- NOTE | 2025-05-31 01:08 | PC.NURSE ---
Dr. Whitehead at bedside to assess patient.
[2025-05-31] MEDS: KETOROLAC INJ 30 MG/ML VIAL 15 MG IVP (01:30)
[2025-05-31] MEDS: GABAPENTIN 100 MG CAPSULE PO ×3 (05:50→21:31)
[2025-05-31] MEDS: INSULIN LISPRO (AdmeLOG) 1 UNIT/0.01 ML UNIT SC ×4 (07:28→20:14)
[2025-05-31] MEDS: levETIRAcetam INJ 100 MG/ML VIAL 5ML 1000 MG IVP ×2 (08:00→20:17)
[2025-05-31] MEDS: METOPROLOL TARTRATE 25 MG TABLET PO ×2 (08:02→20:05)
[2025-05-31 08:56] LABS: Basophils # (Auto) 0.0 Thou/mm3 (0.0-0.2); Basophils % (Auto) 1 % (0-2.5); Eosinophils # (Auto) 0.4 Thou/mm3 (0.0-0.5); Eosinophils % (Auto) 4 % (0-10); Hematocrit 41.7 % (41.0-53.0); Hemoglobin 13.7 g/dL (13.5-16.0); Immature Granulocytes Auto 0.02 Thou/mm3 (0.00-0.00); Lymphocytes # (Auto) 1.7 Thou/mm3 (1.0-4.8); Lymphocytes % (Auto) 20 % (10-50); Mean Corpuscular HGB Conc 32.9 g/dl (31.0-37.0); Mean Corpuscular Hemoglobin 30.8 pg (25.0-35.0); Mean Corpuscular Volume 94 fL (80-100); Monocytes # (Auto) 0.7 Thou/mm3 (0.0-0.8); Monocytes % (Auto) 8 % (0-12); Neutrophils # (Auto) 5.6 Thou/mm3 (1.8-7.7); Neutrophils % (Auto) 67 % (37-80); Nucleated Red Blood Cell # 0.00 Thou/mm3 (0.00-0.00); Nucleated Red Blood Cell % 0 /100 WBC (0); Platelet Count 207 Thou/mm3 (140-440); RDW Standard Deviation 45.0 fL (35.1-43.9); Red Blood Count 4.45 Miln/mm3 (4.50-5.90); White Blood Count 8.4 Thou/mm3 (3.8-10.6)
[2025-05-31 09:07] LABS: Alanine Aminotransferase 25 U/L (10-49); Albumin, Serum 3.9 gm/dL (3.4-4.8); Albumin/Globulin Ratio 1.6 (1.2-2.2); Alkaline Phosphatase 125 U/L (46-116); Anion Gap 9 (7-16); Aspartate Amino Transferase 11 U/L (0-34); BUN/Creatinine Ratio 20 Ratio (12-20); Bilirubin,Total 0.5 mg/dL (0.3-1.2); Blood Urea Nitrogen 26 mg/dL (9-23); Calcium 9.6 mg/dL (8.3-10.6); Calcium (Corrected) 9.7 mg/dL (8.5-10.1); Carbon Dioxide 27.4 mMol/L (20.0-31.0); Chloride 99 mMol/L (98-107); Creatinine (Component) 1.3 mg/dL (0.6-1.3); Estimated Creatinine Clearance 68.3 mL/min (>60); Globulin 2.5 gm/dL (2.3-3.5); Glucose 383 mg/dL (74-106); Osmolality,Calculated 290 (275-295); Potassium 5.1 mMol/L (3.4-5.1); Sodium 135 mMol/L (136-145); Total Protein 6.4 gm/dL (5.7-8.2); eGFR 59 See Note
--- NOTE | 2025-05-31 10:26 | PC.SS ---
Follow up note: SS met with pt and provided him with [facility] which contains SNF choices. Pt is requesting [facility]. SS spoke to Terri at [facility] she will accept pt and start insurance authorization.
[2025-05-31] MEDS: INSULIN DEGLUDEC 5 UNIT/0.05 ML (PER 5 UNITS) 10 UNIT SC (10:43)
[2025-05-31] MEDS: INSULIN LISPRO (AdmeLOG) 1 UNIT/0.01 ML UNIT 5 UNIT SC ×2 (11:50→17:31)
--- NOTE | 2025-05-31 12:57 | PC.SS ---
PASRR assessment has been completed and sent to [facility] for insurance authorization using [facility].
[2025-05-31] MEDS: ACETAMINOPHEN 325 MG TABLET 650 MG PO (14:22)
--- NOTE | 2025-05-31 16:27 | ESPR_ITS ---
Documentation for date of: 05/31/25 Subjective Subjective Interval history: No Overnight events. Labs reviewed and patient examined at the bedside. Currently pending SNF placement. Mild headache. Patient's glucose level was 383. Received 24 units of insulin lispro over last 24hrs on sliding scale. Added 10 units of Insulin degludec and 5 units of premeal insulin lispro. Patient was hypertensive with 165/74 this morning. His adjusted HTN regime is Amlodipine 5mg PO qd, Lisonopril 10mg PO qd, Metoprolol 25mg PO bid, Labetalol 10mg prn. Denies chest pain, palpation, SOB, abdominal pain, N/V, fevers or chills. Exam Vital Signs Temp Pulse Resp BP Pulse Ox O2 Del Method 97.5 F 70 20 149/68 H 96 Room Air 05/31/25 12:00 05/31/25 15:57 05/31/25 15:57 05/31/25 12:00 05/31/25 15:57 05/31/25 12:00 Narrative Exam General: No acute distress, well nourished, AAO x3 Eye: no scleral icterus, Left eye subconjunctival hemorrage due to fall trauma. HENT: Normocephalic, atraumatic, hearing intact to conversation at normal volume, moist oral mucosa Neck: Supple, non-tender, no JVD, no lymphadenopathy Lungs: Symmetric chest rise, No wheezing, rhonchi, crackles, Coarse breath sounds. Heart: Peripheral pulses intact bilaterally, Regular Rate and Rhythm. Abdomen: Soft, non-tender, non-distended, no palpable masses Musculoskeletal: Normal range of motion and strength, No cyanosis or edema, No visible joint swelling Skin: Skin is warm, dry, Left lower knee unhealing ulcer due to diabetes. Psychiatric: Cooperative, appropriate mood and affect, Awake and alert, not agitated Neuro: Cranial nerves II-XII grossly intact. Strength 5/5 throughout. Sensations intact to light touch Objective Labs 06/01/25 04:26 06/01/25 04:26 Labs: Laboratory Results - last 24 hr 05/31/25 08:36 WBC 8.4 RBC 4.45 L Hgb 13.7 Hct 41.7 MCV 94 MCH 30.8 MCHC 32.9 RDW Std Deviation 45.0 H Plt Count 207 D Neut % (Auto) 67 Lymph % (Auto) 20 Patrick % (Auto) 8 Eos % (Auto) 4 Baso % (Auto) 1 Neut # (Auto) 5.6 Lymph # (Auto) 1.7 Patrick # (Auto) 0.7 Eos # (Auto) 0.4 Baso # (Auto) 0.0 Immature Gran # (Auto) 0.02 H Absolute Nucleated RBC 0.00 Immature Gran % 0 Nucleated RBC % 0 Sodium 135 L Potassium 5.1 D Chloride 99 Carbon Dioxide 27.4 Anion Gap 9 BUN 26 H Creatinine 1.3 Estim Creat Clear Calc 68.3 eGFR 59 L BUN/Creatinine Ratio 20 Glucose 383 H D Calculated Osmolality 290 Calcium 9.6 Corrected Calcium 9.7 Total Bilirubin 0.5 AST 11 ALT 25 Alkaline Phosphatase 125 H Total Protein 6.4 Albumin 3.9 Globulin 2.5 Albumin/Globulin Ratio 1.6 Quality Measures Quality Measures VTE prophylaxis Advance care planning discussed with:: patient Assessment & Plan Assessment Current Active Medications: Generic Name Dose Route Start Last Admin Trade Name Freq PRN Reason Stop Dose Admin Acetaminophen 650 mg 05/27/25 17:35 05/31/25 14:22 Acetaminophen 325 Mg Tablet PO 06/26/25 17:34 650 mg Q6H PRN Administration PAIN SCALE 1-3 (mild Acetaminophen 650 mg 05/27/25 17:35 Acetaminophen 325 Mg Tablet PO 06/26/25 17:34 Q6H PRN Fever >101.5 Al Hydrox/Mg Hydrox/Simethicone 30 ml 05/27/25 17:35 Mg Hyd/Al Hyd/Abelardo (Maalox Reg) Susp 30 Ml Udc PO 06/26/25 17:34 Q6H PRN Indigestion Albuterol/Ipratropium 3 ml 05/30/25 09:51 05/31/25 01:04 Albuterol/Ipratropium (Duoneb) Rt Merlene 3 Ml Nebu INH 06/29/25 12:59 3 ml Q6HRRT PRN Administration wheezing Amlodipine Besylate 5 mg 05/29/25 09:00 05/31/25 08:03 Amlodipine Besylate 5 Mg Tablet PO 06/28/25 08:59 5 mg QDAY ELISABETH Administration Atorvastatin Calcium 80 mg 05/27/25 21:00 05/30/25 21:35 Atorvastatin Calcium 20 Mg Tablet PO 06/26/25 20:59 80 mg HS ELISABETH Administration Bisacodyl 5 mg 05/27/25 18:04 Bisacodyl 5 Mg Tabec PO 06/26/25 18:03 QDAY PRN CONSTIPATION Protocol Dextrose 25 ml 05/27/25 18:13 Dextrose 50%-Water Inj 50 Ml Syringe IV 06/26/25 18:12 Q15MIN PRN BG 50-70 responsive npo pt Dextrose 50 ml 05/27/25 18:13 Dextrose 50%-Water Inj 50 Ml Syringe IV 06/26/25 18:12 Q15MIN PRN BG <50 OR BG <70 & pt unresponsive Gabapentin 100 mg 05/27/25 22:00 05/31/25 14:20 Gabapentin 100 Mg Capsule PO 06/26/25 21:59 100 mg TID ELISABETH Administration Glucagon 1 mg 05/27/25 18:13 Glucagon Inj 1 Mg Vial IM Q15MIN PRN BG <70, and no IV access Insulin Degludec 10 unit 05/31/25 09:00 05/31/25 10:43 Insulin Degludec 5 Unit/0.05 Ml (Per 5 Units) CA 06/30/25 08:59 10 unit QDAY ELISABETH Administration Insulin Human Lispro 0 unit 05/28/25 08:32 05/31/25 11:50 Insulin Lispro (Admelog) 1 Unit/0.01 Ml Unit SC 06/26/25 20:59 5 unit ACHS ELISABETH Administration Protocol Insulin Human Lispro 5 unit 05/31/25 11:30 05/31/25 11:50 Insulin Lispro (Admelog) 1 Unit/0.01 Ml Unit CA 06/30/25 11:29 5 unit AC ELISABETH Administration Labetalol HCl 10 mg 05/27/25 17:45 Labetalol Inj 5 Mg/Ml Vial 20 Ml IVP 06/26/25 17:44 Q4HR PRN Hypertension Levetiracetam 1,000 mg 05/27/25 21:00 05/31/25 08:00 Levetiracetam Inj 100 Mg/Ml Vial 5ml IVP 06/26/25 20:59 1,000 mg Q12HR ELISABETH Administration Lisinopril 10 mg 06/01/25 09:00 Lisinopril 2.5 Mg Tablet PO 07/01/25 08:59 QDAY ELISABETH Metoprolol Tartrate 25 mg 05/28/25 09:00 05/31/25 08:02 Metoprolol Tartrate 25 Mg Tablet PO 06/27/25 08:59 25 mg BID ELISABETH Administration Ondansetron HCl 4 mg 05/27/25 17:35 Ondansetron Inj 2 Mg/Ml Inj 2 Ml IVP 06/26/25 17:34 Q6H PRN NAUSEA OR VOMITING Protocol Polyethylene Glycol 17 gm 05/27/25 18:15 05/31/25 08:05 Polyethylene Glycol 17 Gm Packet PO 06/26/25 18:14 Not Given QDAY ELISABETH Plan 70y/o M with PMH of MIx2, NIDDM, HLD, CHF, HTN, R hip surgery and lymphoma, was transferred from [facility] after evaluation of subdural hematoma. Patient was admitted for observation of his subdural hematoma. #Subdural hematoma due to fall-stable -Head CT (05/25/2025): Acute subarachnoid hemorrhage in the left frontal parietal sulci.Minimal acute subdural hemorrhage, 3 mm thickness anterior cerebral falx -Cervical Spine CT (05/25/2025): No acute cervial fracture -CXR (05/25/2025): No pneumothorax pulmonary contusion or hemothorax. -Repeat CT head was stable. CT brain/head w/o contrast (05/25/2025 22:37:37): Acute subarachnoid hemorrhage within the left frontal lobe. Small amount of acute cerebral hemorrhage layering along the falx cerebri. [id number] focus of acute extra-axial hemorrhage along the left aspect of the anterior falx cerebri. 5x2mm focus of acute extra axial hemorrhage along the mid aspect of the high right frontal lobe. Focal soft tissue swelling and subcutaneous soft tissue stranding/thickening of the high posterior scalp soft tissues the vertex consistent with soft tissue injury. -Repeat CT head (05/28/2025): No significant change in small areas of subarachnoid hemorrhage right frontal sulcus and left frontal sulci, suggest continued follow-up Plan: -Keppra 1000mg IV q12hr -Neurology consulted. Recommendation appreciated. -repeat CT if any changes in neuro status, follow up outpatient with neuro -patient will benefir from SNF placement for PT/OT , pending insurance auth, most likely on saturday #Diabetes Mellitus -A1c 10.2 -Received 24 units of insulin lispro over last 24hrs on sliding scale. Plan: -Added 10 units of Insulin degludec and 5 units of premeal insulin lispro. -on SSI -on Low carb consistent diet #Non healing ulcer - left lower knee -On Woundcare #HTN -Amlodipine 5mg PO qd -Lisonopril 10mg PO qd -Metoprolol 25mg PO bid -Labetalol 10mg prn Disposition: Med surg Diet: low carb consistent diet GI prophylaxis: Miralax DVT prophylaxis: SCD Code: FULL Assessment and plan discussed with my attending physician Dr. Harshil Hahn (PGY-1) - Internal medicine resident Attending Provider Attestation/Addendum I reviewed labs, imaging, EKG, home medications and prior available records. Face to face evaluation was performed by me. I have personally examined the patient and discussed assessment and plan with the IM team. I reviewed the resident note and agree with the plan with exceptions as below. Ground-level fall Subdural hematoma Essential hypertension Repeat CT head is stable Pending SNF authorization
[2025-05-31] MEDS: ATORVASTATIN CALCIUM 20 MG TABLET 80 MG PO (20:06)
--- NOTE | 2025-05-31 21:29 | PD.RESPRO ---
Documentation for date of: 05/31/25 Subjective Subjective Interval history: Patient examined at bedside. Sitting comfortably eating dinner. Glucose this morning 383, A1c 8.3 on 04/12. He denies any headache, blurry vision, chest pain, shortness of breath, weakness. Plan to continue patient on Keppra 1000 mg twice daily for 1 month as seizure precaution. Plan to repeat CT head on morning before discharge to evaluate for any interval changes. Continue to adjust insulin doses to optimize glucose levels. Exam Vital Signs Temp Pulse Resp BP Pulse Ox O2 Del Method 97.6 F 68 20 162/75 H 97 Room Air 05/31/25 16:00 05/31/25 20:47 05/31/25 20:47 05/31/25 20:05 05/31/25 20:47 05/31/25 16:00 Narrative Exam General: Elderly male, eating dinner, no acute distress, cooperative HEENT: NCAT, No JVD noted. Mucosa moist. Pupils are equal and reactive to light bilaterally, left subconjunctival hemorrhage due to fall. Appears to be improving. Cardiovascular: Normal S1 and S2. Regular rate and rhythm. Respiratory: Lungs are clear to auscultation bilaterally. No wheezing or crackles heard. Abdomen: Soft, nontender, not distended, normal bowel sounds. Skin: Warm to touch, dry, no rashes noted, Left lower knee unhealing ulcer due to diabetes. Erythematous. Musculoskeletal: No gross injuries. Able to move all 4 extremities. No pitting edema Neuro: Alert and oriented x3. No focal neuro deficits. Psych: Normal affect and mood Objective Labs 06/01/25 04:26 06/01/25 04:26 Labs: Laboratory Results - last 24 hr 05/31/25 08:36 WBC 8.4 RBC 4.45 L Hgb 13.7 Hct 41.7 MCV 94 MCH 30.8 MCHC 32.9 RDW Std Deviation 45.0 H Plt Count 207 D Neut % (Auto) 67 Lymph % (Auto) 20 [place] % (Auto) 8 Eos % (Auto) 4 Baso % (Auto) 1 Neut # (Auto) 5.6 Lymph # (Auto) 1.7 [place] # (Auto) 0.7 Eos # (Auto) 0.4 Baso # (Auto) 0.0 Immature Gran # (Auto) 0.02 H Absolute Nucleated RBC 0.00 Immature Gran % 0 Nucleated RBC % 0 Sodium 135 L Potassium 5.1 D Chloride 99 Carbon Dioxide 27.4 Anion Gap 9 BUN 26 H Creatinine 1.3 Estim Creat Clear Calc 68.3 eGFR 59 L BUN/Creatinine Ratio 20 Glucose 383 H D Calculated Osmolality 290 Calcium 9.6 Corrected Calcium 9.7 Total Bilirubin 0.5 AST 11 ALT 25 Alkaline Phosphatase 125 H Total Protein 6.4 Albumin 3.9 Globulin 2.5 Albumin/Globulin Ratio 1.6 Quality Measures Quality Measures VTE prophylaxis Advance care planning discussed with:: patient Assessment & Plan Assessment Current Active Medications: Generic Name Dose Route Start Last Admin Trade Name Freq PRN Reason Stop Dose Admin Acetaminophen 650 mg 05/27/25 17:35 05/31/25 14:22 Acetaminophen 325 Mg Tablet PO 06/26/25 17:34 650 mg Q6H PRN Administration PAIN SCALE 1-3 (mild Acetaminophen 650 mg 05/27/25 17:35 Acetaminophen 325 Mg Tablet PO 06/26/25 17:34 Q6H PRN Fever >101.5 Al Hydrox/Mg Hydrox/Simethicone 30 ml 05/27/25 17:35 Mg Hyd/Al Hyd/Abelardo (Maalox Reg) Susp 30 Ml Udc PO 06/26/25 17:34 Q6H PRN Indigestion Albuterol/Ipratropium 3 ml 05/30/25 09:51 05/31/25 20:47 Albuterol/Ipratropium (Duoneb) Rt Merlene 3 Ml Nebu INH 06/29/25 12:59 3 ml Q6HRRT PRN Administration wheezing Amlodipine Besylate 5 mg 05/29/25 09:00 05/31/25 08:03 Amlodipine Besylate 5 Mg Tablet PO 06/28/25 08:59 5 mg QDAY ELISABETH Administration Atorvastatin Calcium 80 mg 05/27/25 21:00 05/31/25 20:06 Atorvastatin Calcium 20 Mg Tablet PO 06/26/25 20:59 80 mg HS ELISABETH Administration Bisacodyl 5 mg 05/27/25 18:04 Bisacodyl 5 Mg Tabec PO 06/26/25 18:03 QDAY PRN CONSTIPATION Protocol Dextrose 25 ml 05/27/25 18:13 Dextrose 50%-Water Inj 50 Ml Syringe IV 06/26/25 18:12 Q15MIN PRN BG 50-70 responsive npo pt Dextrose 50 ml 05/27/25 18:13 Dextrose 50%-Water Inj 50 Ml Syringe IV 06/26/25 18:12 Q15MIN PRN BG <50 OR BG <70 & pt unresponsive Gabapentin 100 mg 05/27/25 22:00 05/31/25 14:20 Gabapentin 100 Mg Capsule PO 06/26/25 21:59 100 mg TID ELISABETH Administration Glucagon 1 mg 05/27/25 18:13 Glucagon Inj 1 Mg Vial IM Q15MIN PRN BG <70, and no IV access Insulin Degludec 10 unit 05/31/25 09:00 05/31/25 10:43 Insulin Degludec 5 Unit/0.05 Ml (Per 5 Units) SC 06/30/25 08:59 10 unit QDAY ELISABETH Administration Insulin Human Lispro 0 unit 05/28/25 08:32 05/31/25 20:14 Insulin Lispro (Admelog) 1 Unit/0.01 Ml Unit SC 06/26/25 20:59 4 unit ACHS ELISABETH Administration Protocol Insulin Human Lispro 5 unit 05/31/25 11:30 05/31/25 17:31 Insulin Lispro (Admelog) 1 Unit/0.01 Ml Unit SC 06/30/25 11:29 5 unit AC ELISABETH Administration Labetalol HCl 10 mg 05/27/25 17:45 Labetalol Inj 5 Mg/Ml Vial 20 Ml IVP 06/26/25 17:44 Q4HR PRN Hypertension Levetiracetam 1,000 mg 05/27/25 21:00 05/31/25 20:17 Levetiracetam Inj 100 Mg/Ml Vial 5ml IVP 06/26/25 20:59 1,000 mg Q12HR ELISABETH Administration Lisinopril 10 mg 06/01/25 09:00 Lisinopril 2.5 Mg Tablet PO 07/01/25 08:59 QDAY ELISABETH Metoprolol Tartrate 25 mg 05/28/25 09:00 05/31/25 20:05 Metoprolol Tartrate 25 Mg Tablet PO 06/27/25 08:59 25 mg BID ELISABETH Administration Ondansetron HCl 4 mg 05/27/25 17:35 Ondansetron Inj 2 Mg/Ml Inj 2 Ml IVP 06/26/25 17:34 Q6H PRN NAUSEA OR VOMITING Protocol Polyethylene Glycol 17 gm 05/27/25 18:15 05/31/25 08:05 Polyethylene Glycol 17 Gm Packet PO 06/26/25 18:14 Not Given QDAY ELSIABETH Plan Choco Martini is 70 yr male with PMH of CAD with previous UT, NIDDM, HLD, CHF, HTN, R hip surgery, lymphoma, on plavix, and hydrocephalus at 6 months old who was transferred back to [facility] from [facility] for subarachnoid hemmoraghe. #Subarachnoid hemorrhage Associated with subdural hematoma. Patient hit head on pavement. CT head on 05/25 showed Acute subarachnoid hemorrhage in the left frontal parietal sulci. Repeat CT head in [facility] did not show any changes acutely. Patient was given Keppra 1000 mg IV q12hr as seizure prophylaxis. No further intervention was consdiered necessary, therefore was transferred back to [facility] on 05/27 for observation. He denies hx of recurrent falls, no headache, no numbness, or vision changes. AOx3. ?Close monitoring of neurologic status for any signs of deterioration ?Repeat CT head in morning on day of discharge to monitor for any interval changes ? Avoid blood thinning agents including pharmaceutical DVT prophylaxis -target BP goal SBP<160 avoiding hypotension - Continue Keppra 1000 mg twice daily for 1 month as recommended by neurosurgery. #Diabetes Mellitus #Non healing ulcer - left lower knee #HTN #CAD Primary care team to manage above conditions and ongoing care needs. The patient's management plan was discussed with my attending physician Dr. Marina. Mae Hernandez, PGY-2 Attending Provider Attestation/Addendum I have seen and examined the patient at the bedside and I agreed with resident's findings, assessment and plan of care. Patient is not symptomatic from the subarachnoid/subdural hemorrhage from the trauma. He continues to have subconjunctival hemorrhage in the left. Will do a repeat CT head on the day of discharge to [facility] for [facility].
[2025-06-01] VITALS (8 sets, daily range): BP systolic 124–171; BP diastolic 63–85; PULSE 68–71; RESP 16–20; TEMP 36.2–36.6; O2SAT 92–94
[2025-06-01 05:21] LABS: Basophils # (Auto) 0.1 Thou/mm3 (0.0-0.2); Basophils % (Auto) 1 % (0-2.5); Eosinophils # (Auto) 0.6 Thou/mm3 (0.0-0.5); Eosinophils % (Auto) 5 % (0-10); Hematocrit 44.9 % (41.0-53.0); Hemoglobin 14.8 g/dL (13.5-16.0); Immature Granulocytes Auto 0.03 Thou/mm3 (0.00-0.00); Lymphocytes # (Auto) 2.7 Thou/mm3 (1.0-4.8); Lymphocytes % (Auto) 27 % (10-50); Mean Corpuscular HGB Conc 33.0 g/dl (31.0-37.0); Mean Corpuscular Hemoglobin 30.6 pg (25.0-35.0); Mean Corpuscular Volume 93 fL (80-100); Monocytes # (Auto) 1.0 Thou/mm3 (0.0-0.8); Monocytes % (Auto) 9 % (0-12); Neutrophils # (Auto) 5.9 Thou/mm3 (1.8-7.7); Neutrophils % (Auto) 58 % (37-80); Nucleated Red Blood Cell # 0.00 Thou/mm3 (0.00-0.00); Nucleated Red Blood Cell % 0 /100 WBC (0); Platelet Count 208 Thou/mm3 (140-440); RDW Standard Deviation 44.1 fL (35.1-43.9); Red Blood Count 4.84 Miln/mm3 (4.50-5.90); White Blood Count 10.2 Thou/mm3 (3.8-10.6)
[2025-06-01] MEDS: GABAPENTIN 100 MG CAPSULE PO ×2 (05:34→13:24)
[2025-06-01 05:51] LABS: Alanine Aminotransferase 30 U/L (10-49); Albumin, Serum 4.0 gm/dL (3.4-4.8); Albumin/Globulin Ratio 1.5 (1.2-2.2); Alkaline Phosphatase 136 U/L (46-116); Anion Gap 11 (7-16); Aspartate Amino Transferase 18 U/L (0-34); BUN/Creatinine Ratio 17 Ratio (12-20); Bilirubin,Total 0.4 mg/dL (0.3-1.2); Blood Urea Nitrogen 26 mg/dL (9-23); Calcium 9.4 mg/dL (8.3-10.6); Calcium (Corrected) 9.4 mg/dL (8.5-10.1); Carbon Dioxide 25.3 mMol/L (20.0-31.0); Chloride 102 mMol/L (98-107); Creatinine (Component) 1.5 mg/dL (0.6-1.3); Estimated Creatinine Clearance 59.2 mL/min (>60); Globulin 2.6 gm/dL (2.3-3.5); Glucose 336 mg/dL (74-106); Magnesium 2.0 mg/dL (1.6-2.6); Osmolality,Calculated 293 (275-295); Phosphorous 3.9 mg/dL (2.4-5.1); Potassium 5.0 mMol/L (3.4-5.1); Sodium 138 mMol/L (136-145); Total Protein 6.6 gm/dL (5.7-8.2); eGFR 49 See Note
[2025-06-01] MEDS: INSULIN LISPRO (AdmeLOG) 1 UNIT/0.01 ML UNIT SC ×3 (07:14→17:10)
[2025-06-01] MEDS: INSULIN LISPRO (AdmeLOG) 1 UNIT/0.01 ML UNIT 5 UNIT SC (07:14)
[2025-06-01] MEDS: levETIRAcetam INJ 100 MG/ML VIAL 5ML 1000 MG IVP (08:33)
[2025-06-01] MEDS: INSULIN DEGLUDEC 5 UNIT/0.05 ML (PER 5 UNITS) 10 UNIT SC ×2 (08:34→09:28)
[2025-06-01] MEDS: METOPROLOL TARTRATE 25 MG TABLET PO (08:36)
--- NOTE | 2025-06-01 09:02 | PC.SS ---
Addendum entered by Jessica Peacock 06/01/25 10:01: SS followed up with Stefany from patient's health insurance who confirmed they are in process of receiving inquiry and are reviewing information and they have rounds at 11am where information will be reviewed. Original Note: SS spoke to Aquilino, operations representative from patient's health insurance who explained they have not received inquiry sent by [facility] yesterday and inquiries take 24 hours to process. has informed Aquilino pt is ready for d/c. has faxed SNF inquiry to [employer] upon Aquilino's request. Aquilino is aware [facility] sent inquiry yesterday at 10:18am. SS has received confirmation letter from [facility]. SS has also faxed confirmation letter sent by [facility] to patient's health insurance.
[2025-06-01] MEDS: INSULIN LISPRO (AdmeLOG) 1 UNIT/0.01 ML UNIT 8 UNIT SC ×2 (11:05→17:11)
--- NOTE | 2025-06-01 11:48 | PC.NURSE ---
Transportation is set up for this afternoon at 17:00
--- NOTE | 2025-06-01 11:58 | PC.NURSE ---
transportation set up for 18:30 due to doctors orders. Monitoring blood sugars till then.
--- NOTE | 2025-06-01 12:00 | PC.SS ---
SS met with pt who is now refusing SNF placement and is requesting to return home. Pt is aware insurance authorization is pending for [facility] but he is still refusing SNF for short term placement. SS was also informed by Dr. Chua, attending physician pt is refusing SNF placement. SS has contacted Siri transfer nurse to provide her with HH information, Adama Ontiveros phone# [phone] fax# [phone] (HH information was provided by pt who was speaking with Komal from [facility] by phone). SS has confirmed with Hetal from [facility] pt has an appointment with Dr. Hunter Jun 08, 2025 at 3:30pm. Pt is aware and provided pt with [facility] with PCP appointment information. SS attempted to call patient's caregiver 3X [phone] but was only able to leave voicemail Stroke assessment completed. SS has setup transportation with [employer] for 6:30pm and pt was unable to pay privately for transportation. Pt does not have Medical to cover transportation. Pt is aware transport time and has contacted his manager merchandise from his building. Bedside nurseEneida is aware. Dr. Chua is aware and requested late dc due to patient's sugar levels being high.
--- NOTE | 2025-06-01 14:08 | ESDS_ITS ---
Planned Discharge Date 06/01/25 DS: Providers Provider Date of admission: 05/27/25 17:39 Primary care physician: Physician No Primary/Family Admitting Provider: Jorge Garza DO Attending Provider on Admission: Scar Chua MD Consults: 05/27/25 18:02 Consult to Neurology / Tele-Neurology Routine Comment: Subdural hematoma. Transfer pt from [facility] Consulting Provider: Israel Marina 05/28/25 06:29 Referral Wound Care Routine Comment: 05/28/25 08:00 Referral Physical Therapy Routine Comment: Physician Instructions: Attending Provider on DC: Josey Hahn DO Discharging Provider: Josey Hahn DO DS: Diagnosis Problem List Completed Was Problem List Reviewed/Reconciled?: Yes Hospital Course Hospital Course Hospital course: Summary: 70y/o M with PMH of MIx2, NIDDM, HLD, CHF, HTN, R hip surgery and lymphoma, initially presented to the ED at [facility] on 05/25/2025, after incident of fall to the back while on mobility scooter. Head CT (05/25/2025) showed Acute subarachnoid hemorrhage in the left frontal parietal sulci. He was transferred to [facility] for evaluation of subarachoid hemorrhage. Repeat CT head in [facility] showed stable hematoma and received Keppra 1000 mg IV q12hr. Patient was re-admitted to [facility] for observation of his subarachoid hemorrhage. Third repeat Head CT showed stable subarachoid hemorrhage. He continued to get Keppra, insulin regime for diabetes, and HTN medications. Recommended to patient to be discharged to SNF, however, patient decided to be discharged to Home with home health. ED course: Vitals: Temp 98.1 F, ME 76, RR:20, BP:186/74, O2 sat: 98% RA. Head CT (05/25/2025): Acute subarachnoid hemorrhage in the left frontal parieta l sulci.Minimal acute subdural hemorrhage, 3 mm thickness anterior cerebral falx Cervical Spine CT (05/25/2025): No acute cervial fracture CXR (05/25/2025): No pneumothorax pulmonary contusion or hemothorax. [facility] Hospital Course: Repeat CT head was stable. Was given Keppra CT brain/head w/o contrast (05/25/2025 22:37:37): Acute subarachnoid hemorrhage within the left frontal lobe. Small amount of acute cerebral hemorrhage layering along the falx cerebri. [id number] focus of acute extra-axial hemorrhage along the left aspect of the anterior falx cerebri. 5x2mm focus of acute extra axial hemorrhage along the mid aspect of the high right frontal lobe. Focal soft tissue swelling and subcutaneous soft tissue stranding/thickening of the high posterior scalp soft tissues the vertex consistent with soft tissue injury. Hospital Course: Patient was transferred back to from [facility]. Patient received a repeat CT head without contrast which showed no significant change from his subarachnoid hemorrhage right frontal sulcus and left frontal sulci. Patient received Keppra 1000 mg IV q8hr. During the stay the patient's glucose level peaked at 383. Patient's previous Hba1c on 04/06/2025 showed 8.3. According to [facility] report, his a1c was 10.2. Right before discharge, his hospital insulin regimen was 20 units of insulin degludec and 8 units Premeal insulin lispro. He was originally planned to be discharged to SNF, however the patient wanted to be discharged to home with home health. With current patien t's status, it would've been difficult for patient to strictly follow current hospital insulin regimen. Therefore only bedtime insulin degludec 20 units has been instructed to be taken after discharge. Patient's hospital hypertension medication regimen was Amlodipine 5mg PO qd, Lisinopril 10mg PO qd, Metoprolol 25mg PO bid. Instructions: Please take lisinopril 10 mg for hypertension Please use insulin degludec 20 units once a day as instructed Please stop taking aspirin, clopidogrel or any other blood thinners Follow-up with neurologist, Dr. Marina, within 1-2 weeks after discharge for subarachnoid hemorrhage Take keppra 1000mg twice a day for 1 month and follow up with neurology regarding need to continue or Discontinue medication. Follow-up with your PCP within 1 week or follow-up at the [facility] [address] [facility] [address] [place] [address] Ask your PCP to refer you to a key operator - or if you follow a key operator please make an appointment within 2 weeks of discharge If your symptoms worsen or if you develop new chest pain, shortness of breath, dizziness or worsening headache - please come back to the ED immediately. #Subarachoid hemorrhage - Stable #Disbetes Mellitus #Non healing ulcer- Left lower knee #HTN Assessment and plan discussed with my attending physician Dr. Harshil Hahn (PGY-1) - Internal medicine resident Status at Discharge Overall status at discharge: patient is progressing back to baseline Time Spent with Patient Time attestation: Total time spent providing and/or coordinating discharge services: Time spent: Greater than 30 minutes Exam Vital Signs Temp Pulse Resp BP Pulse Ox O2 Del Method 97.2 F 70 16 171/85 H 94 L Room Air 06/01/25 12:00 06/01/25 12:00 06/01/25 12:00 06/01/25 12:00 06/01/25 12:06/01/25 12:00 Narrative Exam General: No acute distress, well nourished, AAO x3 Eye: no scleral icterus, Left eye subconjunctival hemorrage due to fall trauma. HENT: Normocephalic, atraumatic, hearing intact to conversation at normal volume, moist oral mucosa Neck: Supple, non-tender, no JVD, no lymphadenopathy Lungs: Symmetric chest rise, No wheezing, rhonchi, crackles, Coarse breath sounds. Heart: Peripheral pulses intact bilaterally, Regular Rate and Rhythm. Abdomen: Soft, non-tender, non-distended, no palpable masses Musculoskeletal: Normal range of motion and strength, No cyanosis or edema, No visible joint swelling Skin: Skin is warm, dry, Left lower knee unhealing ulcer due to diabetes. Psychiatric: Cooperative, appropriate mood and affect, Awake and alert, not agitated Neuro: Cranial nerves II-XII grossly intact. Strength 5/5 throughout. Sensations intact to light touch Discharge Plan Plan Patient Disposition: Home w/HOME HEALTH Care Plan Goals: Please take lisinopril 10 mg for hypertension Please use insulin degludec 20 units once a day as instructed Please stop taking aspirin, clopidogrel or any other blood thinners Follow-up with neurologist, Dr. Marina, within 1-2 weeks after discharge for subarachnoid hemorrhage Take keppra 1000mg twice a day for 1 month and follow up with neurology regarding need to continue or Discontinue medication. Follow-up with your PCP within 1 week or follow-up at the [facility] [address] [place] [address] Ask your PCP to refer you to a key operator - or if you follow a key operator please make an appointment within 2 weeks of discharge If your symptoms worsen or if you develop new chest pain, shortness of breath, dizziness or worsening headache - please come back to the ED immediately. Prescriptions/Referrals Prescriptions/Med Rec: New lisinopril 10 mg tablet 10 mg PO QDAY 30 Days Qty: 30 0RF (DME) blood-glucose meter Kit See Rx Instructions .Route Qty: 1 0RF Rx Instructions: As directed (DME) Blood Glucose Test Strip See Rx Instructions .Route Qty: 50 0RF Rx Instructions: To use diabetic test strips, wash and dry your hands, insert a new, unexpired strip into the meter, and prick the side of your fingertip with a lancet. Apply a drop of blood to the strip, wait for the result, then discard the used strip and lancet properly. Keep your strips in their original vial with the cap tightly closed and store them in a cool, dry place (DME) lancets 21 gauge misc See Rx Instructions .Route Qty: 100 0RF Rx Instructions: Twist and pull the long piece of safety plastic off the end of the lancet. Then, place the lancet between your index and middle finger (like holding a syringe). Place and hold onto the finger you wish to draw blood from and press down on the large yellow button until you hear a click. (DME) FreeStyle Melina 3 Plus Sensor Device See Rx Instructions .Route Qty: 2 0RF Rx Instructions: As directed (DME) FreeStyle Melina 3 [place] Misc See Rx Instructions .Route Qty: 1 0RF Rx Instructions: As directed (DME) pen needle, diabetic [Pen Needle] 29 gauge x 1/2 needle See Rx Instructions .Route Qty: 100 0RF Rx Instructions: As directed insulin degludec 100 unit/mL (3 mL) insulin pen 20 unit subcut QDAY 30 Days Qty: 6 0RF levetiracetam [Keppra] 1,000 mg tablet 1,000 mg PO BID 30 Days Qty: 60 0RF Continued atorvastatin [Lipitor] 80 MG tablet 80 mg PO HS Qty: 0 metoprolol tartrate 25 MG tablet 25 mg PO BID Qty: 0 Januvia 100 MG tablet 100 mg PO QDAY Qty: 0 multivitamin Tablet 1 tab PO QDAY ascorbic acid (vitamin C) [Vitamin C] 500 mg Tablet 500 mg PO QDAY ferrous sulfate 325 mg (65 mg iron) Tablet 325 mg PO QDAY cyanocobalamin (vitamin B-12) [Vitamin B-12] 1,000 mcg Tablet 1,000 mcg PO QDAY gabapentin 100 mg Capsule 100 mg PO TID amlodipine 5 mg tablet 5 mg PO QDAY Patient Comments: TAKE ONE TABLET BY MOUTH DAILY AT 9 AM Discontinued lisinopril 2.5 MG tablet 2.5 mg PO QDAY Qty: 0 clopidogrel 75 mg Tablet 75 mg PO QDAY aspirin 325 mg Tablet 325 mg PO QDAY Referrals: No Primary/Family,Physician [Primary Care Provider] Israel Marina MD [Physician, Neurology] Patient/Caregiver Discharge Instructions Education Materials: What Is a Subdural Hematoma? Print Language: Serbian Stand Alone Forms: Shyla Award Info., Patient Portal Info Letter Discharge Order Discharge Orders: Discharge (Routine); Ordered 06/01/25 Ordered By: Jerrell Guzman Quality Discharge Quality Measures VTE prophylaxis MD Attestestation MD Attestation I reviewed labs, imaging, EKG, home medications and prior available records. Face to face evaluation was performed by me. I have personally examined the patient and discussed assessment and plan with the IM team. I reviewed the resident note and agree with the plan with exceptions as below. Ground-level fall Subdural hematoma Essential hypertension Uncontrolled insulin-dependent diabetes mellitus Repeat CT head is stable Patient wanted to go home. He declined SNF Continue long-acting insulin. Add Januvia Continue Keppra 1000 mg twice daily for 1 month Continue blood pressure management Outpatient follow-up with neurology Time spent is 40 minutes. More than 50% of the time was spent on patient education and coordination of care.
--- NOTE | 2025-06-01 15:20 | PC.CC ---
Met w/ patient at bedside for insulin injection training. Per patient, he used to use 30 units of long-acting insulin approximately 10 years ago in insulin pen form. He is also currently using Mounjaro at home and performing fingerstick glucose checks. He denies any problems administering medications or performing SMBG other than his sugars are rising. He states that glimepiride and pioglitazone were discontinued by his PCP. Discussed discharging again on long-acting insulin and priming insulin pen prior to injections. No additional needs at this time.
--- NOTE | 2025-06-02 12:57 | PC.CC ---
Addendum entered by Wilfred Head RN 06/02/25 13:35: [facility] accepted and booked, soc pending Original Note: home health ref sent out, waiting for responses
== END 2025-06-01 18:23 | disposition home health service (06) ==
PROVIDERS: Student in an Organized Health Care Education/Training Program; Admitting Provider Student in an Organized Health Care Education/Training Program; Visit Provider Student in an Organized Health Care Education/Training Program
DX: S06.6XAA Traumatic subarachnoid hemorrhage with loss of consciousness status unknown, initial encounter (principal); S06.5XAA Traumatic subdural hemorrhage with loss of consciousness status unknown, initial encounter; I11.0 Hypertensive heart disease with heart failure; I50.9 Heart failure, unspecified; W05.2XXA Fall from non-moving motorized mobility scooter, initial encounter; I25.10 Atherosclerotic heart disease of native coronary artery without angina pectoris; I25.2 Old myocardial infarction; E11.622 Type 2 diabetes mellitus with other skin ulcer; L97.829 Non-pressure chronic ulcer of other part of left lower leg with unspecified severity
CPT/HCPCS: 36415; 70450; 71045; 80053; 81001; 83735; 84100; 85025; 87081; 94640; 96374; 96375; 96376; 97161; A9270; G0378; J1815; J1885; J1953

== ENCOUNTER → 2025-07-28 | Outpatient (CLI) | payer MEDICARE, MEDICAID, SELFPAY ==
--- NOTE | 2025-07-28 11:20 | XR_ITS ---
Examination: Duplex scan of the lower extremity, unilateral left complete Date and time of exam: July 28, 2025, 1209 hours INDICATIONS: Left leg swelling years Technique: Duplex scan of the extremity veins using B-mode/grayscale imaging and Doppler spectral analysis and color flow Attention is directed to internal echogenicity, compression and augmentation involving these veins, color flow assessment, spectral analysis Findings: Major deep venous structures in the extremity demonstrate normal course and caliber. There is no evidence of deep vein thrombosis. Normal color flow and spectral analysis Impression: Negative for DVT..
== END | disposition home or self-care (01) ==
PROVIDERS: PCP Family Medicine; Referring Provider Internal Medicine; Visit Provider Internal Medicine
DX: R60.9 Edema, unspecified (principal)
CPT/HCPCS: 93971